=== PATIENT | female | born 1950 | race African-American/Black ===

== ENCOUNTER 2018-10-11 13:57 | Emergency (ER) | payer OTHER ==
[2018-10-11] MEDS ORDERED: HYDROCODONE/APAP 10/325 TAB ONE (15:14)
--- NOTE | 2018-10-11 16:01 | RAD REPORT ---
EXAM DESCRIPTION: RAD - Knee Right 3 View - 10/11/2018 3:04 pm CLINICAL HISTORY: Persistent right knee pain, history of breast cancer COMPARISON: September 2017 FINDINGS: No gross fracture deformity is seen. There is no dislocation or periosteal reaction. Media l compartment narrowing is present. Marginal spurs are present. Pattern is similar to the comparison. No joint effusion seen. No foreign body or other soft tissue abnormality. IMPRESSION: Right knee degenerative change as detailed. Pattern is similar to comparison with no acute component seen. Clinical concerns for internal derangement or occult bony injury could be further assessed with MR im aging.
--- NOTE | 2018-10-11 16:30 | EDPHYS ---
[facility] Name: Vicki [facility] Age: 68 yrs Sex: Female : 1950 Arrival Date: 10/11/2018 Time: 14:00 Bed 25 Private MD: ED Physician Gabino Mitchell HPI: 10/11 14:41 This 68 yrs old Black Female presents to ER via Ambulatory with complaints of Knee Pain.kdr 14:41 The patient presents with decreased range of motion, pain, that is chronic, tenderness. kdr The complaints affect the right knee. Context: The problem was sustained at home, resulted from an unknown cause, the patient can fully bear weight, the patient is able to ambulate, with mild difficulty, Problem is a result from a previous injury: No. Onset: The symptoms/episode began/occurred gradually, June. Modifying factors: The symptoms are alleviated by nothing. Has seen Dr. Cam in the last week and given Tramadol. She states that this medication has not helped up. Associated signs and symptoms: Pertinent positives: Pertinent negatives swelling, tingling, vomiting. Severity of symptoms: At their worst the symptoms were mild, in the emergency department the symptoms are unchanged. The patient has not experienced similar symptoms in the past. The patient has been recently seen by a physician: the patient's primary care provider. Denies any known injury. Historical: - Allergies: 14:03 No Known Allergies; ss - PMHx: 14:03 Arthritis; Cancer, Breast; Hypertension; ss - PSHx: 14:03 cataracts; ss - Immunization history:: Adult Immunizations unknown. - Social history:: Smoking status: Patient/guardian denies using tobacco. - Ebola Screening: : Patient denies exposure to infectious person Patient denies travel to an Ebola-affected area in the 21 days before illness onset. ROS: 14:41 Constitutional: Negative for fever, chills, and weight loss, Eyes: Negative for injury, kdr pain, redness, and discharge. 14:41 MS/extremity: Positive for decreased range of motion, pain, tenderness. Exam: 14:41 Constitutional: This is a well developed, well nourished patient who is awake, alert, kdr and in no acute distress. 14:41 Musculoskeletal/extremity: Extremities: grossly normal except: decreased ROM, pain. Vital Signs: 14:03 BP 152 / 71; Pulse 87; Resp 16; Temp 98.4(TE); Pulse Ox 96% on R/A; Weight 131.54 kg; ss Height 5 ft. 6 in. (167.64 cm); Pain 10/10; 16:40 BP 146 / 76; Pulse 84; Resp 15; Temp 98; Pulse Ox 97% on R/A; rv 14:03 Body Mass Index 46.81 (131.54 kg, 167.64 cm) MDM: 14:41 Data reviewed: vital signs, nurses notes. Counseling: I had a detailed discussion with kdr the patient and/or guardian regarding: the historical points, exam findings, and any diagnostic results supporting the discharge/admit diagnosis, radiology results, the need for outpatient follow up. 16:29 Patient medically screened. kdr 10/11 14:40 Order name: Knee Right 3 View XRAY; Complete Time: 16:27 kdr Administered Medications: 14:58 Drug: [place] 10 mg-325 mg 1 tabs Route: PO; aj 16:41 Follow up: Response: No adverse reaction; Marked relief of symptoms; Pain is decreased rv Disposition: 10/11/18 16:29 Discharged to Home. Impression: Pain in right knee, Degenerative Joint Disease - right knee. - Condition is Stable. - Discharge Instructions: Knee Pain, [id number], Joint Pain, Xftr-gv-[id number]. - Prescriptions for Tylenol- Codeine #3 300-30 mg Oral Tablet - take 2 tablet by ORAL route every 6 hours As needed; 30 tablet. - Medication Reconciliation Form, Thank You Letter, Prescription Opioid Use form. - Follow up: Private Physician; When: 2 - 3 days; Reason: If symptoms return, Further diagnostic work-up, Recheck today's complaints, Continuance of care, Re-evaluation by your physician. Follow up: Richmond Sahu MD; When: 2 - 3 days; Reason: If symptoms return, Further diagnostic work-up, Recheck today's complaints, Continuance of care, Re-evaluation by your physician. - Problem is an ongoing problem. - Symptoms have improved. Signatures: Dispatcher [employer] Lucy Ortiz RN RN aj Rittger, Kevin, MD MD kdr Smirch, Shelby, RN RN Dajuan, Jay, RN RN rv Corrections: (The following items were deleted from the chart) 16:42 16:29 10/11/2018 16:29 Discharged to Home. Impression: Pain in right knee; Degenerative rv Joint Disease - right knee. Condition is Stable. Forms are Medication Reconciliation Form, Thank You Letter, Antibiotic Education, Prescription Opioid Use. Follow up: Private Physician; When: 2 - 3 days; Reason: If symptoms return, Further diagnostic work-up, Recheck today's complaints, Continuance of care, Re-evaluation by your physician. Follow up: Richmond Sahu; When: 2 - 3 days; Reason: If symptoms return, Further diagnostic work-up, Recheck today's complaints, Continuance of care, Re-evaluation by your physician. Problem is an ongoing problem. Symptoms have improved. kdr
--- NOTE | 2018-10-11 16:30 | ER ---
Nurse's Notes [facility] Name: Vicki Mention Age: 68 yrs Sex: Female : 1950 Arrival Date: 10/11/2018 Time: 14:00 Bed 25 Private MD: Diagnosis: Pain in right knee;Degenerative Joint Disease - right knee Presentation: 10/11 14:02 Presenting complaint: Patient states: R knee pain x months. Patient states that the ss tramadol that Dr. Cam had prescribed her is not helping. Transition of care: patient was not received from another setting of care. Onset of symptoms is unknown. Risk Assessment: Do you want to hurt yourself or someone else? Patient reports no desire to harm self or others. Initial Sepsis Screen: Does the patient meet any 2 criteria? No. Patient's initial sepsis screen is negative. Does the patient have a suspected source of infection? No. Patient's initial sepsis screen is negative. Care prior to arrival: None. 14:02 Method Of Arrival: Ambulatory ss 14:02 Acuity: BONG 4 ss Historical: - Allergies: 14:03 No Known Allergies; ss - PMHx: 14:03 Arthritis; Cancer, Breast; Hypertension; ss - PSHx: 14:03 cataracts; ss - Immunization history:: Adult Immunizations unknown. - Social history:: Smoking status: Patient/guardian denies using tobacco. - Ebola Screening: : Patient denies exposure to infectious person Patient denies travel to an Ebola-affected area in the 21 days before illness onset. Screenin:59 Abuse screen: Denies threats or abuse. Denies injuries from another. Nutritional aj screening: No deficits noted. Tuberculosis screening: No symptoms or risk factors identified. Fall Risk None identified. Assessment: 14:59 General: Appears in no apparent distress. comfortable, Behavior is calm, cooperative, aj appropriate for age. Pain: Complains of pain in right knee. Neuro: Level of Consciousness is awake, alert, obeys commands, Oriented to person, place, time, situation. Respiratory: Airway is patent Respiratory effort is even, unlabored, Respiratory pattern is regular, symmetrical. Derm: Skin is intact, is healthy with good turgor, Skin is pink, warm \T\ dry. normal. Musculoskeletal: Reports pain in right knee. 16:00 Reassessment: Patient appears in no apparent distress at this time. Patient and/or rv family updated on plan of care and expected duration. Pain level reassessed. Patient is alert, oriented x 3, equal unlabored respirations, skin warm/dry/pink. Patient states feeling better. Vital Signs: 14:03 BP 152 / 71; Pulse 87; Resp 16; Temp 98.4(TE); Pulse Ox 96% on R/A; Weight 131.54 kg; Height 5 ft. 6 in. (167.64 cm); Pain 10/10; 16:40 BP 146 / 76; Pulse 84; Resp 15; Temp 98; Pulse Ox 97% on R/A; rv 14:03 Body Mass Index 46.81 (131.54 kg, 167.64 cm) ED Course: 14:00 Patient arrived in ED. as 14:02 Gabino Mitchell MD is Attending Physician. kdr 14:03 Triage completed. ss 14:03 Arm band placed on left wrist. 14:06 Robert Hernandez RN is Primary Nurse. aj 14:59 Patient has correct armband on for positive identification. aj 15:06 Knee Right 3 View XRAY In Process Unspecified. EDMS 15:33 Report received from ROBERT POWELL. rv 16:28 Richmond Sahu MD is Referral Physician. kdr 16:42 No provider procedures requiring assistance completed. Patient did not have IV access rv during this emergency room visit. Administered Medications: 14:58 Drug: [place] 10 mg-325 mg 1 tabs Route: PO; aj 16:41 Follow up: Response: No adverse reaction; Marked relief of symptoms; Pain is decreased rv Outcome: 16:29 Discharge ordered by . kdr 16:42 Discharged to home via wheelchair, with family. rv 16:42 Condition: improved 16:42 Discharge instructions given to patient, Instructed on discharge instructions, follow up and referral plans. medication usage, Demonstrated understanding of instructions, follow-up care, medications, Prescriptions given X 1. 16:42 Patient left the ED. rv Signatures: Dispatcher [employer] EDMS Robert Hernandez, Gabino Dunbar RN, MD MD [facility] Kelsey Anderson Shelby, RN RN Jay Graff RN RN rv
[2018-10-11 17:26] VITALS: BP 146/76; TEMP 98; O2SAT 97
== END 2018-10-11 16:42 | disposition home or self-care (01) ==
LOC: ER 13:57
DX: M17.11 Unilateral primary osteoarthritis, right knee (principal); I10 Essential (primary) hypertension; Z85.3 Personal history of malignant neoplasm of breast
CPT/HCPCS: 99283

== ENCOUNTER 2019-08-16 13:31 | Emergency (ER) | payer OTHER ==
--- NOTE | 2019-08-16 15:14 | RAD REPORT ---
EXAM DESCRIPTION: RAD - Knee Right 3 View - 08/16/2019 2:49 pm CLINICAL HISTORY: PAIN COMPARISON: Knee Right 3 View dated 10/11/2018; Knee Right 2 View dated 10/07/2017 FINDINGS: No fracture, dislocation or periosteal reaction.No joint effusion seen. Medial compartment narrowing is seen with marginal spurring. Pattern is not substantially different from the comparison . No foreign body or other soft tissue abnormality. IMPRESSION: Significant medial compartment degenerative change with no acute finding. Bone and joint findings are similar to September 2018. Clinical concerns for internal derangement or occult bony injury could be further assessed with MR im aging.
--- OUTSIDE RECORDS SUMMARY | 2019-08-16 15:29 | XMS REPORT ---
:1950 Author Organization [facility] t Address [address] [place] [address] Care Team Providers Name Role Phone Radiology Attending Clinician Unavailable Problems This patient has no known problems. Allergies, Adverse Reactions, Alerts This patient has no known allergies or adverse reactions. Medications This patient has no known medications. Procedures This patient has no known procedures. Encounters Start End Encounter Admission Attending Care Care Encounter Source Date/Time Date/Time Type Type Clinicians Facility Department ID 2019-08-10 2019-08-10 [facility] Radiology [facility] [id number] 06:45:00 23:59:00 Encounter [facility] [id number] [facility] [id number] 2019-05-16 2019-05-16 [facility] Radiology UNIVERSIT [id number] 14:59:00 23:59:00 Encounter [facility] [id number] [facility] [id number] 2019-05-16 2019-05-16 [facility] Radiology UNIVERSIT [id number] 14:58:00 14:58:00 Encounter [facility] [id number] [facility] [id number] Results This patient has no known results.
--- OUTSIDE RECORDS SUMMARY | 2019-08-16 15:30 | XMS REPORT | Summary of Care ---
:1950 Author Organization [facility] Address [address] [place] [id number] Care Team Providers Name Role Phone Jovita Hassan Primary Care Provider Reason for Visit Radiology Services (Routine) Status Reason Specialty Diagnoses / Referred By Referred To Procedures Contact Contact Closed Diagnostic Diagnoses Abnormal mammogram Keisha Cam Radiology Procedures BI UPRIGHT STEREOTACTIC CORE BREAST BIOPSY RIGHT BI STEREOTACTIC CORE BREAST BIOPSY LEFT L [address] [place] [address] Encounter Details Date Type Department Care Team Description 08/10/[address] [facility] Breast Radiology Arrived Imaging [address] [place] [address] [place] [address] [place] [address] [place] [address] Allergies No Known Allergiesdocumented as of this encounter (statuses as of 08/11/2019) Medications Medication Sig Dispensed Refills Start Date End Date Status ASPIRIN 81 MG ORAL TAB None Entered 0 Active ESSENTIAL WOMAN 50+ ORAL 800 units of 0 Active vitamin D and 450mg calcium in tab, takes once a day traMADOL (ULTRAM) 50 mg Take 1 Tab by 120 Tab 5 06/10/2010 Active tabletIndications: mouth every 6 Generalized (six) hours as osteoarthrosis, needed for unspecified site Pain. levalbuterol (XOPENEX HFA) Inhale 1-2 1 Inhaler 11 10/01/2010 Active 45 mcg/Actuation Puffs every 4 inhalerIndications: Asthma (four) hours as needed for Wheezing. cloniDINE (CATAPRES) 0.2 Take 1 Tab by 180 Tab 3 10/01/2010 Active mg tabletIndications: mouth 2 (two) Unspecified essential times daily. hypertension esomeprazole (NEXIUM) 40 Take 1 Cap by 90 Cap 3 10/01/2010 Active mg capsuleIndications: mouth daily. Esophageal reflux diltiazem (CARDIZEM CD) TAKE 1 CAPSULE 90 Cap 1 04/13/2011 Active 240 mg 24 hr capsule EVERY DAY hydrocodone-acetaminophen Take 1 Tab by 60 Tab 1 06/16/2011 Active (NORCO) 5-325 mg tablet mouth every 6 (six) hours as needed for Pain. hydrochlorothiazide Take 12.5 mg 0 Active (ESIDRIX) 12.5 mg capsule by mouth daily. warfarin (COUMADIN) 7.5 mg Take 7.5 mg by 0 Active tablet mouth every Wednesday, and Wednesday in the evening. warfarin (COUMADIN) 5 mg Take 5 mg by 0 Active tablet mouth every , , Sat and Sun in the evening. vitamin B-12 (VITAMIN Take 1 Tab by 90 Tab 3 06/23/2011 Active B-12) 1,000 mcg tablet mouth daily. documented as of this encounter (statuses as of 08/11/2019) Active Problems Problem Noted Date Asthma 10/01/2010 HLD (hyperlipidemia) 10/01/2010 Overview: ICD10 Diagnosis Term It Administrative Assistant Utility CKD (chronic kidney disease) stage 3, GFR 30-59 ml/min 06/10/2010 Anemia 06/10/2010 Overview: ICD10 Diagnosis Term It Administrative Assistant Utility Pain in joint, lower leg 03/11/2009 Lumbago 03/11/2009 Generalized osteoarthrosis, unspecified site 9 Morbid obesity 07/31/2008 Malignant neoplasm of lower-inner quadrant of female b reast 05/24/2006 Essential hypertension 01/11/2006 Overview: ICD10 Diagnosis Term It Administrative Assistant Utility Esophageal reflux 01/11/2006 Obstructive sleep apnea 01/11/2006 Overview: ICD10 Diagnosis Term It Administrative Assistant Utility 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 documented as of this encounter (statuses as of 08/11/2019) Resolved Problems Problem Noted Date Resolved Date Obesity 07/31/2008 07/31/2008 Overview: ICD10 Diagnosis Term It Administrative Assistant Utility Asthma 01/11/2006 10/01/2010 Overview: ICD10 Diagnosis Term It Administrative Assistant Utility Other dyspnea and respiratory abnormality 01/11/2006 01/11/2006 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 6 documented as of this encounter (statuses as of 08/11/2019) Immunizations Name Administration Dates Next Due H1n1 Vaccine 04/17/2009 Influenza Virus Vaccine 01/23/2010, 01/14/2009, 01/11/2008, 01/11/2006 Pneumococcal 7 Conjugate, PCV7 08/24/2005 (Prevnar7) Zoster(Zostavax)(Shingles) 01/23/2010 documented as of this encounter Social History Tobacco Use Types Packs/Day Years Used Date Never Smoker Smokeless Tobacco: Never Used Alcohol Use Drinks/Week oz/Week Comments No Sex Assigned at Date Recorded Not on file Job Start Date Occupation Industry Not on file Not on file Not on file Travel History Travel Start Travel End No recent travel history available. COVID-19 Exposure Response Date Recorded In the last month, have you been in contact with No / Unsure 08/10/2019 6:44 AM CDT someone who was confirmed or suspected to have Coronavirus / COVID-19? documented as of this encounter Last Filed Vital Signs Not on filedocumented in this encounter Plan of Treatment Name Type Priority Associated Diagnoses Date/Ti ut SURGICAL PATHOLOGY EXAM LAB STAT 07/21 9:23 AM CDT Name Type Priority Associated Diagnoses Order S [facility] SURGICAL PATHOLOGY EXAM LAB Routine ONCE for 1 Occurrences starting 2019, 1 completed Health Maintenance Due Date Last Done Comments HEPATITIS C (HCV) SCREEN 1950 DTaP,Tdap,and Td Vaccines (1 - 1959 Tdap) COLONOSCOPY 1998 Breast Cancer Screening 09/11/2008 09/12/2007, 08/12/2005 (MAMMOGRAM) Zoster Recombinant Vaccine 03/20/2010 01/23/2010 (SHINGRIX) (2 of 3) Medicare Wellness Visit 2013 PNEUMOCOCCAL VACCINES 65+ (1 of 2 2013 - PCV13) Osteoporosis Screening 10/13/2014 10/13/2004 INFLUENZA VACCINE (Season Ended) 2019 01/23/2010, , 01/11/2008, Additional history exists documented as of this encounter Procedures Procedure Name Priority Date/Time Associated Comments Diagnosis BI UPRIGHT Routine 08/10/2019 10:07 Abnormal mammogram Resul ts for this STEREOTACTIC CORE AM CDT procedure are in BREAST BIOPSY RIGHT the resu lts section. documented in this encounter Results BI UPRIGHT STEREOTACTIC CORE BREAST BIOPSY RIGHT (08/10/2019 10:07 AM CDT) Specimen Narrative Performed At This result has an attachment that is no t available. Examination: PACS BI UPRIGHT STEREOTACTIC CORE BREAST BIOPSY RIGHT The procedure was explained to the patient including b enefits and alternatives. The risks, including but not limited t o infection and bleeding, were reviewed and the patient agreed to unde rgo the procedure, signing the consent form. Timeout was performed. History: Patient is a 69 year old year old female and is seen f or: Abnormal mmg. Comparisons: 03/31/2019 BI DIAGNOSTIC MAMMOGRAM RIGHT, 03/09/2019 MAMMOGRAM SCREENING EXAM, 02/14/2018 MAMMOGRAM SCREENI NG EXAM, 12/31/2016 MAMMOGRAM SCREENING EXAM, 09/12/2007 DIGITAL MAMMOGRAM , SCREENING, 09/10/2006 MAMMARY SCREENING EXAM, 04/20/2006 MAMMOGRA M, BILATERAL, 08/12/2005 DIGITAL MAMMOGRAM, UNILATERAL, and 07/29/19 06 MAMMARY SCREENING EXAM Outside exam dated 03/31/19 with the following findings : Mildly pleomorphic calcification cluster in the deep m edial right breast is again identified. 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 The patient now presents for stereotactic biopsy. CURRENT EXAM: The patient was upright position for the biopsy. The area of interest was localized and targeted via medial approach utilizing d igital spot mammography with computer calculation. After antiseptic preparation the skin puncture site wa s infiltrated with lidocaine. Deep local anesthesia about the biopsy si te was administered using lidocaine with epinephrine. A skin incision wa s made. A 9 gauge Eviva vacuum-assisted automated core biopsy needle was inserted to the computer determined depth, and stereotactic images chad wed satisfactory relationship of the needle position to the target at 4 :00, posterior depth, 16 cm from the nipple. Tissue cores were obta ined. Digital specimen radiography showed calcifications within some of the cores. A TOP HAT shaped tissue marker clip was deployed through the needle, and the needle was withdrawn. On the post biopsy mammogram the top hat clip is as fo llows: On the RCC view the top hat clip is approximately 5 cm medial to the sampled calcifications. On the RMLO view the top hat clip is approximately 0.9 cm inferior to the sampled calcifications. On the RML view the top hat clip is approximately 21 m m superior to the sampled calcifications. The patient's breasts are extremely pendulous. Approxi mately 4 mm of residual calcifications are noted in the sampled area and foci of air are seen at the biopsy site (before the biopsy the calcifi cations measured 9 mm in greatest dimension). A significant amount of c alcifications are seen in the core samples. Recommendation: Pending pathology results - Right tissue sampling of t he right breast calcifications at 4:00, posterior depth, 16 cm from th e nipple. BI-RADS 4. Top hat-shaped clip, as above. Performing Organization Address City/State/Zipcode Phone Number PACS documented in this encounter Visit Diagnoses Diagnosis Abnormal mammogram Abnormal mammogram, unspecified documented in this encounter Insurance Payer Benefit Plan / Subscriber ID Effective Phone Address T ype Group Dates MEDICARE MEDICARE PART xxxxxxxxxxx 2003-Pres [phone] Medicare A & B ent [id number] [place] [id number] [employer] xxxxxxxxx 2006-Pres [address] [place] [id number] [place] [address] (Work) [id number] documented as of this encounter
[2019-08-16] MEDS ORDERED: HYDROCODONE/APAP 5/325 MG TAB ONE (15:46)
[2019-08-16] MEDS ORDERED: predniSONE 20 MG TAB ONE (15:47)
[2019-08-16 16:30] VITALS: BP 148/69; TEMP 98.4; O2SAT 100
--- NOTE | 2019-08-21 14:25 | ER ---
Nurse's Notes [facility] [place] Name: Vicki Mention Age: 69 yrs Sex: Female : 1950 Arrival Date: 08/16/2019 Time: 13:41 Bed 11 Private MD: Diagnosis: Pain in right knee Presentation: 08/15 13:59 Chief complaint: Patient states: right knee pain for years but has gotten worse over dm5 the last couple of months. Pain rated at 9/10 at this time. Coronavirus screen: Proceed with normal triage. Patient denies a cough. Patient denies shortness of breath or difficulty breathing. Patient denies measured and/or subjective temperature greater than 100.4F prior to today's visit. Patient denies travel on a cruise ship or to a country the [facility] currently lists as an affected area. Patient denies contact with known and/or suspected case of COVID-19. Ebola Screen: Patient negative for fever greater than or equal to 101.5 degrees Fahrenheit, and additional compatible Ebola Virus Disease symptoms Patient denies exposure to infectious person. Patient denies travel to an Ebola-affected area in the 21 days before illness onset. No symptoms or risks identified at this time. Initial Sepsis Screen: Does the patient meet any 2 criteria? No. Patient's initial sepsis screen is negative. Does the patient have a suspected source of infection? No. Patient's initial sepsis screen is negative. Risk Assessment: Do you want to hurt yourself or someone else? Patient reports no desire to harm self or others. Onset of symptoms was May 2019. 13:59 Method Of Arrival: Other dm5 13:59 Acuity: BONG 4 dm5 Historical: - Allergies: 14:01 No Known Allergies; dm5 - Immunization history:: Adult Immunizations up to date. - Social history:: Smoking status: Patient denies any tobacco usage or history of. Screenin:30 Abuse screen: Denies threats or abuse. Denies injuries from another. Nutritional hb screening: No deficits noted. Tuberculosis screening: No symptoms or risk factors identified. Fall Risk None identified. Assessment: 15:30 General: Appears in no apparent distress. Behavior is calm, cooperative. Pain: Pain hb currently is 8 out of 10 on a pain scale. Neuro: Level of Consciousness is awake, alert, obeys commands. Cardiovascular: Patient's skin is warm and dry. Respiratory: Respiratory effort is even, unlabored. GI: No signs and/or symptoms were reported involving the gastrointestinal system. : No signs and/or symptoms were reported regarding the genitourinary system. EENT: No signs and/or symptoms were reported regarding the EENT system. Derm: Skin is pink, warm \T\ dry. Musculoskeletal: Reports right knee pain, chronic. Vital Signs: 13:59 BP 148 / 69; Pulse 74; Resp 18; Temp 98.4; Pulse Ox 100% on R/A; Weight 108.86 kg; dm5 Height 5 ft. 6 in. (167.64 cm); Pain 9/10; 13:59 Body Mass Index 38.74 (108.86 kg, 167.64 cm) 5 ED Course: 13:41 Patient arrived in ED. fj1 14:01 Triage completed. [facility] 15:29 Elsa Mccormack FNP-C is [facility]. snw 15:29 Gabino Mitchell MD is Attending Physician. snw 15:30 Patient has correct armband on for positive identification. hb 15:30 Arm band placed on. hb 15:41 Joy Ferro, RN is Primary Nurse. hb 15:48 No provider procedures requiring assistance completed. Patient did not have IV access hb during this emergency room visit. Administered Medications: 15:41 Drug: Orient 5 mg-325 mg 1 tabs Route: PO; hb 15:46 Follow up: Response: Medication administered at discharge. hb 15:41 Drug: predniSONE 40 mg Route: PO; hb 15:47 Follow up: Response: Medication administered at discharge. hb Outcome: 15:38 Discharge ordered by . snw 15:48 Discharged to home ambulatory. hb 15:48 Condition: stable 15:48 Discharge instructions given to patient, Instructed on discharge instructions, follow up and referral plans. medication usage, Demonstrated understanding of instructions, follow-up care, medications, Prescriptions given X 1. 15:49 Patient left the ED. hb Signatures: Joanie Bernard, RN RN 5 Elsa Mccormack FNP-C FNP-Csnw Joy Ferro RN RN Mickey Chatman [facility]
--- NOTE | 2019-08-21 14:25 | EDPHYS ---
[facility] Age: 69 yrs Sex: Female : 1950 Arrival Date: 08/16/2019 Time: 13:41 Bed 11 Private MD: ED Physician Gabino Mitchell HPI: 08/15 15:36 This 69 yrs old Black Female presents to ER via Other with complaints of Knee Pain. snw 15:36 Onset: The symptoms/episode began/occurred gradually, 6 month(s) ago, and became worse snw 1 week(s) ago. The patient has experienced similar episodes in the past, chronically, but today's symptoms are worse. The patient has not recently seen a physician, pt has not been able to see PCP to , Recent biopsy of breast, negative. Historical: - Allergies: 14:01 No Known Allergies; dm5 - Immunization history:: Adult Immunizations up to date. - Social history:: Smoking status: Patient denies any tobacco usage or history of. ROS: 15:35 Eyes: Negative for injury, pain, redness, and discharge, ENT: Negative for injury, snw pain, and discharge, Neck: Negative for injury, pain, and swelling, Cardiovascular: Negative for chest pain, palpitations, and edema, Respiratory: Negative for shortness of breath, cough, wheezing, and pleuritic chest pain, Abdomen/GI: Negative for abdominal pain, nausea, vomiting, diarrhea, and constipation, Back: Negative for injury and pain, : Negative for injury, bleeding, discharge, and swelling, Skin: Negative for injury, rash, and discoloration, Neuro: Negative for headache, weakness, numbness, tingling, and seizure. 15:35 Constitutional: Positive for right knee pain keeping pt awake at night. 15:35 MS/extremity: Positive for pain, of the right knee. Exam: 15:34 Constitutional: This is a well developed, well nourished patient who is awake, alert, snw and in no acute distress. Head/Face: Normocephalic, atraumatic. Eyes: Pupils equal round and reactive to light, extra-ocular motions intact. Lids and lashes normal. Conjunctiva and sclera are non-icteric and not injected. Cornea within normal limits. Periorbital areas with no swelling, redness, or edema. ENT: Nares patent. No nasal discharge, no septal abnormalities noted. Tympanic membranes are normal and external auditory canals are clear. Oropharynx with no redness, swelling, or masses, exudates, or evidence of obstruction, uvula midline. Mucous membranes moist. Neck: Trachea midline, no thyromegaly or masses palpated, and no cervical lymphadenopathy. Supple, full range of motion without nuchal rigidity, or vertebral point tenderness. No Meningismus. Chest/axilla: Normal chest wall appearance and motion. Nontender with no deformity. No lesions are appreciated. 15:34 Respiratory: Lungs have equal breath sounds bilaterally, clear to auscultation and percussion. No rales, rhonchi or wheezes noted. No increased work of breathing, no retractions or nasal flaring. Abdomen/GI: Soft, non-tender, with normal bowel sounds. No distension or tympany. No guarding or rebound. No evidence of tenderness throughout. Back: No spinal tenderness. No costovertebral tenderness. Full range of motion. Skin: Warm, dry with normal turgor. Normal color with no rashes, no lesions, and no evidence of cellulitis. Neuro: Awake and alert, GCS 15, oriented to person, place, time, and situation. Cranial nerves II-XII grossly intact. Motor strength 5/5 in all extremities. Sensory grossly intact. Cerebellar exam normal. Normal gait. Psych: Awake, alert, with orientation to person, place and time. Behavior, mood, and affect are within normal limits. 15:34 Cardiovascular: Rate: normal, Rhythm: regular, Heart sounds: murmur, Edema: ankle edema, that is mild. 15:34 Musculoskeletal/extremity: Extremities: grossly normal except: noted in the right knee: tenderness, ROM: intact in all extremities, uses walker, Circulation is intact in all extremities. Sensation intact. Vital Signs: 13:59 BP 148 / 69; Pulse 74; Resp 18; Temp 98.4; Pulse Ox 100% on R/A; Weight 108.86 kg; dm5 Height 5 ft. 6 in. (167.64 cm); Pain 9/10; 13:59 Body Mass Index 38.74 (108.86 kg, 167.64 cm) dm5 MDM: 15:29 Patient medically screened. snw 15:39 Data reviewed: vital signs, nurses notes. Data interpreted: Pulse oximetry: on room air snw is 100 %. Counseling: I had a detailed discussion with the patient and/or guardian regarding: the historical points, exam findings, and any diagnostic results supporting the discharge/admit diagnosis, radiology results, the need for outpatient follow up, to return to the emergency department if symptoms worsen or persist or if there are any questions or concerns that arise at home. Special discussion: I have referred the patient to see his PCP for further evaluation of high blood pressure. Based on the history and exam findings, there is no indication for further emergent testing or inpatient evaluation. I discussed with the patient/guardian the need to see the orthopedic surgeon for further evaluation of the symptoms. I discussed with the patient/guardian the need to see the primary care provider for further evaluation of the symptoms. 08/15 14:02 Order name: Knee Right 3 View XRAY dm5 Administered Medications: 15:41 Drug: Paton 5 mg-325 mg 1 tabs Route: PO; hb 15:46 Follow up: Response: Medication administered at discharge. hb 15:41 Drug: predniSONE 40 mg Route: PO; hb 15:47 Follow up: Response: Medication administered at discharge. hb Disposition: 16:33 Co-signature as Attending Physician, Gabino Mitchell MD I agree with the assessment and kdr plan of care. Disposition: 08/16/19 15:38 Discharged to Home. Impression: Pain in right knee. - Condition is Stable. - Discharge Instructions: Joint Pain, Arthritis, Knee Pain, Cryotherapy, [id number], Heat Therapy. - Prescriptions for Prednisone 20 mg Oral Tablet - take 2 tablet by ORAL route once daily for 5 days; 10 tablet. - Medication Reconciliation Form, Thank You Letter, Antibiotic Education, Prescription Opioid Use form. - Follow up: Emergency Department; When: As needed; Reason: Worsening of condition. Follow up: Private Physician; When: 5 - 6 days; Reason: Recheck today's complaints, Continuance of care. Signatures: Dispatcher [employer] Joanie Leger, RN RN dm5 Gabino Mitchell MD MD kdr Therrien, Shelly, J2EE DEVELOPER-C J2EE DEVELOPER-Csnw Joy Ferro RN RN hb Corrections: (The following items were deleted from the chart) 15:49 15:38 08/16/2019 15:38 Discharged to Home. Impression: Pain in right knee. Condition is hb Stable. Forms are Medication Reconciliation Form, Thank You Letter, Antibiotic Education, Prescription Opioid Use. Follow up: Emergency Department; When: As needed; Reason: Worsening of condition. Follow up: Private Physician; When: 5 - 6 days; Reason: Recheck today's complaints, Continuance of care. snw
== END 2019-08-16 15:49 | disposition home or self-care (01) ==
LOC: ER 13:31
DX: M25.561 Pain in right knee (principal)
CPT/HCPCS: 99283; J7512

== ENCOUNTER 2020-04-18 14:16 | Emergency (ER) | payer OTHER ==
--- OUTSIDE RECORDS SUMMARY | 2020-04-18 14:26 | XMS REPORT | Summary of Care ---
:1950 [address] [facility] Address [address] [place] [id number] Care Team Providers Name Role Phone Jovita Hassan Primary Care Provider Reason for Visit Reason Comments New Patient (Routine) Status Reason Specialty Diagnoses / Procedures Referred By C ontact Referred To Contact Closed Cardiology Diagnoses Unspecified diastolic (congestive) heart failure Brenton Fernandez, Procedures CONSULT/REFERRAL CARDIOLOGY [address] [place] [address] Phone: Encounter Details Date Type Department Care Team Description 03/19/2020 Office Visit [facility] Tamy George ERRONEOUS Cardiology- Mikhail Baeza MD ENCOUNTER--DISREGARD [address], [address] [place] [id number] Allergies No Known Allergiesdocumented as of this encounter (statuses as of 03/20/2020) Medications Medication Sig Dispensed Refills Start Date [...] Active B-12) 1,000 mcg tablet mouth daily. furosemide 40 mg tablet TK 1 T PO QD 0 09/11/2019 Active IN THE MORNING PRF LEG SWELLING omeprazole 20 mg capsule TK 1 C PO QD 0 09/11/2019 Active FOR REFLUX documented as of this encounter (statuses as of 03/20/2020) Active Problems Problem Noted Date Asthma 10/01/2010 HLD (hyperlipidemia) 10/01/2010 Overview: ICD10 Diagnosis Term Strategic Advisor Utility CKD (chronic kidney disease) stage 3, GFR 30-59 ml/min 06/10/2010 Anemia 06/10/2010 Overview: ICD10 Diagnosis Term Strategic Advisor Utility Pain in joint, lower leg 03/11/2009 Lumbago 03/11/2009 Generalized osteoarthrosis, unspecified site 9 Morbid obesity 07/31/2008 Malignant neoplasm of lower-inner quadrant of female b reast 05/24/2006 Essential hypertension 01/11/2006 Overview: ICD10 Diagnosis Term Strategic Advisor Utility Esophageal reflux 01/11/2006 Obstructive sleep apnea 01/11/2006 Overview: ICD10 Diagnosis Term Strategic Advisor Utility 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 documented as of this encounter (statuses as of 03/20/2020) Resolved Problems Problem Noted Date Resolved Date Obesity 07/31/2008 07/31/2008 Overview: ICD10 Diagnosis Term Strategic Advisor Utility Asthma 01/11/2006 10/01/2010 Overview: ICD10 Diagnosis Term Strategic Advisor Utility Other dyspnea and respiratory abnormality 01/11/2006 01/11/2006 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 6 documented as of this encounter (statuses as of 03/20/2020) Immunizations Name Administration Dates Next Due H1n1 Vaccine 04/17/2009 Influenza Virus Vaccine 01/23/2010, 01/14/2009, 01/11/2008, 01/11/2006 Pneumococcal 7 Conjugate, PCV7 08/24/2005 (Prevnar7) Zoster(Zostavax)(Shingles) 01/23/2010 documented as of this encounter Social History Tobacco Use Types Packs/Day Years Used Date Never Smoker Smokeless Tobacco: Never Used Alcohol Use Drinks/Week oz/Week Comments No Sex Assigned at Date Recorded Not on file COVID-19 Exposure Response Date Recorded In the last month, have you been in contact with No / Unsure 03/19/2020 9:02 AM COST RECOVERY TECHNICIAN someone who was confirmed or suspected to have Coronavirus / COVID-19? documented as of this encounter Last Filed Vital Signs Not on filedocumented in this encounter Progress Notes Tamy George MD - 03/19/2020 1:00 PM CSTA user error has taken place: encounter opened in error, closed for administrative reasons. RECOVERY TECHNICIAN documented in this encounter Plan of Treatment Health Maintenance Due Date Last Done Comments HEPATITIS C (HCV) SCREEN 1950 DTaP,Tdap,and Td Vaccines ( - 1967 Tdap) COLON CANCER SCREENING ANNUAL 1998 FIT/FOBT COLON CANCER SCREENING FIT DNA 1998 EVERY 3 YEARS COLON CANCER SCREENING 1998 SIGMOIDOSCOPY EVERY 5 YEARS COLONOSCOPY 1998 Colorectal Cancer Screening 1998 Breast Cancer Screening 09/11/2008 09/12/2007, 08/12/2005 (MAMMOGRAM) Zoster Recombinant Vaccine 03/20/2010 01/23/2010 (SHINGRIX) (2 of 3) Medicare Wellness Visit 2013 PNEUMOCOCCAL VACCINES 65+ (1 of 1 2013 - PPSV23) Osteoporosis Screening 10/13/2014 10/13/2004 INFLUENZA VACCINE (#1) 2019 01/23/2010, 01/14/2009, 01/11/2008, Additional history exists Depression Screening 03/19/2021 03/19/2020 documented as of this encounter Results Not on filedocumented in this encounter Visit Diagnoses Diagnosis ERRONEOUS ENCOUNTER--DISREGARD - Primary documented in this encounter Insurance Payer Benefit Plan / Subscriber ID Effective Phone Address T e Group Dates [facility] [id number] 2019-Pres Medica re Adv HEALTHCARE - HEALTHCARE ent HMO MANAGED DUAL COMPLETE MEDICARE O [employer] [id number] 2006-Pres [address] [place] [id number] [place] [address] (Work) [id number] documented as of this encounter
--- OUTSIDE RECORDS SUMMARY | 2020-04-18 14:26 | XMS REPORT | Summary of Care ---
:1950 Author Organization [facility] - [facility] Address [address] [place] [address] Care Team Providers Name Role Phone Catherine Holly MD Primary Care Provider FARHEEN Weaver Primary Care Provider Tiffany Holly MD Primary Care Provider Barry Mccray MD Primary Care Provider Unavailable Alessandro Orourke MD Primary Care Provider Unavailable Alessandro Orourke MD Primary Care Provider Unavailable FARHEEN Weaver Primary Care Provider MD Frank Primary Care Provider Sonya Primary Care Provider Encounter Details Date Type Department Care Team Description Orders Only [facility] Doctor Unassigned, No [address] [facility] Name [place] [id number] [place], [place] [id number] Allergies No Known Allergiesdocumented as of this encounter (statuses as of 03/11/2020) Medications No known medicationsdocumented as of this encounter (statuses as of 03/11/2020) Active Problems Problem Noted Date Asthma 10/01/2010 HLD (hyperlipidemia) 10/01/2010 Overview: ICD10 Diagnosis Term Supervisor Facepiece Line Utility CKD (chronic kidney disease) stage 3, GFR 30-59 ml/min 06/10/2010 Anemia 06/10/2010 Overview: ICD10 Diagnosis Term Supervisor Facepiece Line Utility Pain in joint, lower leg 03/11/2009 Lumbago 03/11/2009 Generalized osteoarthrosis, unspecified site 9 Morbid obesity 07/31/2008 Malignant neoplasm of lower-inner quadrant of female b reast 05/24/2006 Essential hypertension 01/11/2006 Overview: ICD10 Diagnosis Term Supervisor Facepiece Line Utility Esophageal reflux 01/11/2006 Obstructive sleep apnea 01/11/2006 Overview: ICD10 Diagnosis Term Supervisor Facepiece Line Utility 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 documented as of this encounter (statuses as of 03/11/2020) Resolved Problems Problem Noted Date Resolved Date Obesity 07/31/2008 07/31/2008 Overview: ICD10 Diagnosis Term Supervisor Facepiece Line Utility Asthma 01/11/2006 10/01/2010 Overview: ICD10 Diagnosis Term Supervisor Facepiece Line Utility Other dyspnea and respiratory abnormality 01/11/2006 01/11/2006 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 documented as of this encounter Last Filed Vital Signs Not on filedocumented in this encounter Plan of Treatment Date Type Specialty Care Team Description 03/19/2020 Office Visit Cardiology Tamy George MD [address] [place] [address] [place] [address] [phone] Health Maintenance Due Date Last Done Comments HEPATITIS C (HCV) SCREEN 1950 Depression Screening 1960 DTaP,Tdap,and Td Vaccines (1 - 1967 Tdap) COLON CANCER SCREENING ANNUAL [...] 2019 01/23/2010, 01/14/2009, 01/11/2008, Additional history exists documented as of this encounter Procedures Procedure Name Priority Date/Time Associated Diagnosis Comme nts REFERRAL- Routine ACCOUNTANT REQUEST/RESPONSE documented in this encounter Results Not on filedocumented in this encounter
--- OUTSIDE RECORDS SUMMARY | 2020-04-18 14:26 | XMS REPORT | Continuity of Care Document ---
:1950 Author Organization [facility] t Address [address] [place] [address] Care Team Providers Name Role Phone Luisa Horne Attending Clinician Problems This patient has no known problems. Allergies, Adverse Reactions, Alerts This patient has no known allergies or adverse reactions. Medications This patient has no known medications. Procedures This patient has no known procedures. Encounters Start End Encounter Admission Attending Care Care Encounter Source Date/Time Date/Time Type Type Clinicians Facility Department ID 2020-04-16 2020-04-16 Telephone MEGHNA Gomez [id number] 00:00:00 00:00:00 [facility] [employer] [id number] Surgical [id number] Specialti [id number] [address] [place] 2020-01-11 2020-01-11 Office MEGHNA Gomez [id number] 40 13:58:02 15:13:34 Visit [facility] [id number] Surgical [id number] Specialti [phone] [address] [place] Results This patient has no known results.
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
--- OUTSIDE RECORDS SUMMARY | 2020-04-18 14:27 | XMS REPORT | Summary of Care ---
:1950 Author Organization [facility] - [facility] Address [address] [place] [address] Care Team Providers Name Role Phone Jovita Hassan Primary Care Provider Reason for Visit Reason Comments New Patient (Routine) Status Reason Specialty Diagnoses / Procedures Referred By C ontact Referred To Contact Closed Cardiology Diagnoses Unspecified diastolic (congestive) heart failure Brenton Fernandez, Procedures CONSULT/REFERRAL CARDIOLOGY [address] [place] [address] Phone: Encounter Details Date Type Department Care Team Description 03/19/2020 Office Visit [facility] Tamy George ERRONEOUS Cardiology- Mikhail Baeza MD ENCOUNTER--DISREGARD [address] ([address] Dx) Drive, [address] [place] [phone] Allergies No Known Allergiesdocumented [...] HLD (hyperlipidemia) 10/01/2010 Overview: ICD10 Diagnosis Term Buffet Runner Utility CKD (chronic kidney disease) stage 3, GFR 30-59 ml/min 06/10/2010 Anemia 06/10/2010 Overview: ICD10 Diagnosis Term Buffet Runner Utility Pain in joint, lower leg 03/11/2009 Lumbago 03/11/2009 Generalized osteoarthrosis, unspecified site 9 Morbid obesity 07/31/2008 Malignant neoplasm of lower-inner quadrant of female b reast 05/24/2006 Essential hypertension 01/11/2006 Overview: ICD10 Diagnosis Term Buffet Runner Utility Esophageal reflux 01/11/2006 Obstructive sleep apnea 01/11/2006 Overview: ICD10 Diagnosis Term Buffet Runner Utility 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 documented as of this encounter Last Filed Vital Signs Not on filedocumented in this encounter Progress Notes Tamy George MD - 03/19/2020 1:00 PM CSTA user error has taken place: encounter opened in error, closed for administrative reasons. RANCH HAND documented in this encounter Plan of Treatment [...] Effective Phone Address T e Group Dates [facility] [id number] 2019-Pres Medica re Adv HEALTHCARE - HEALTHCARE ent HMO MANAGED DUAL COMPLETE MEDICARE O [employer] [id number] 2006-Pres [address] [place] [id number] [place] [address] (Work) [id number] documented as of this encounter
--- OUTSIDE RECORDS SUMMARY | 2020-04-18 14:27 | XMS REPORT | Summary of Care ---
:1950 Author Organization [facility] - [facility] Address [address] [place] [address] Care Team Providers Name Role Phone Jovita Hassan Primary Care Provider Reason for Visit Reason Comments Appointment injection Encounter Details Date Type Department Care Team Description 04/16/2020 Telephone [facility] Harry Gomez A ppointment (injection) Surgery- [place] PAC [address], [address] [place] [address] [place], [place] [phone] Allergies No Known Allergiesdocumented as of this encounter (statuses as of 04/16/2020) Medications Medication Sig Dispensed Refills Start Date [...] as of this encounter (statuses as of 04/16/2020) Active Problems Problem Noted Date Asthma 10/01/2010 HLD (hyperlipidemia) 10/01/2010 Overview: ICD10 Diagnosis Term Patient Accounts Specialist Utility CKD (chronic kidney disease) stage 3, GFR 30-59 ml/min 06/10/2010 Anemia 06/10/2010 Overview: ICD10 Diagnosis Term Patient Accounts Specialist Utility Pain in joint, lower leg 03/11/2009 Lumbago 03/11/2009 Generalized osteoarthrosis, unspecified site 9 Morbid obesity 07/31/2008 Malignant neoplasm of lower-inner quadrant of female b reast 05/24/2006 Essential hypertension 01/11/2006 Overview: ICD10 Diagnosis Term Patient Accounts Specialist Utility Esophageal reflux 01/11/2006 Obstructive sleep apnea 01/11/2006 Overview: ICD10 Diagnosis Term Patient Accounts Specialist Utility 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 documented as of this encounter (statuses as of 04/16/2020) Resolved Problems Problem Noted Date Resolved Date Obesity 07/31/2008 07/31/2008 Overview: ICD10 Diagnosis Term Patient Accounts Specialist Utility Asthma 01/11/2006 10/01/2010 Overview: ICD10 Diagnosis Term Patient Accounts Specialist Utility Other dyspnea and respiratory abnormality 01/11/2006 01/11/2006 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 6 documented as of this encounter (statuses as of 04/16/2020) Immunizations Name Administration Dates Next Due H1n1 [...] with No / Unsure 03/19/2020 9:02 AM 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 documented as of this encounter Last Filed Vital Signs Not on filedocumented in this encounter Miscellaneous Notes Telephone Encounter - Lennie Hanna MA - 04/16/2020 1:35 PM CSTPlease schedule appointment to discuss injection. Lennie Hanna MA 04/16/2020 1:35 PM elephone Encounter - Zara Borges - 04/16/2020 11:02 AM CSTVicki Mention is a 69 year old female Patient is calling to get scheduled to have another injection. Please call [phone] signed by Zara Borges at 04/16/2020 11:02 AM ARMATURE WINDER REPAIRER documented in this encounter Plan of Treatment Health Maintenance Due Date Last Done Comments HEPATITIS C (HCV) SCREEN 1950 SARS-CoV-2 (COVID-19) Vaccine (1 1964 of 2) DTaP,Tdap,and Td Vaccines (1 - 1967 Tdap) [...] Results Not on filedocumented in this encounter Insurance Payer Benefit Plan / Subscriber ID Effective Phone Address T ype Group Dates [facility] [id number] 2019-Pres Medica re Adv HEALTHCARE - HEALTHCARE ent HMO MANAGED DUAL COMPLETE MEDICARE O [employer] [id number] 2006-Pres [address] [place] [id number] [place] [address] documented as of this encounter
--- NOTE | 2020-04-18 19:07 | RAD REPORT ---
EXAM DESCRIPTION: RAD - Chest Single View - 04/18/2020 7:00 pm CLINICAL HISTORY: SOB Chest pain. COMPARISON: Chest Single View dated 05/06/2016; CHEST SINGLE VIEW dated 06/19/2013; CHEST SINGLE VIEW dated 12/14/2012; CHEST SINGLE VIEW dated 03/21/2012 FINDINGS: Portable technique limits examination quality. Interstitial lung markings are mildly prominent bilaterally. This likely indicates mild interstitial pulmonary edema. The heart is upper limit normal in size. No displaced fractures. IMPRESSION: Mild CHF.
--- NOTE | 2020-04-18 19:47 | RAD REPORT ---
EXAM DESCRIPTION: US - Extrem Venous W Compress Davi - 04/18/2020 7:28 pm CLINICAL HISTORY: SWELLING Bilateral leg edema and swelling. COMPARISON: EXT VENOUS W COMPRESSION DAVI dated 06/20/2013 TECHNIQUE: Real-time sonographic interrogation of the left and right lower extremity deep venous sys tems was performed. FINDINGS: Normal compressibility, flow augmentation, phasic flow and spontaneous flow is identified in both the left and right lower extremity deep venous systems. 4 cm right popliteal Gomez's cyst. IMPRESSION: No sonographic evidence of left or right lower extremity deep venous thrombosis.
[2020-04-18 19:55] LABS: Absolute Lymphocytes (CBC) 2.2 K/uL (0.7-4.9); Basophils % 0.6 % (0-1.3); Lymphocytes % 29.3 % (15.3-44.8); MPV 8.7 fL (7.6-11.3); RBC Red Blood Cell Count 4.31 M/uL (3.86-4.86)
[2020-04-18] MEDS ORDERED: FUROSEMIDE 40 MG/4 ML VIAL ONE (20:00)
[2020-04-18 20:17] LABS: ALT/SGPT 24 U/L (12-78); AST/SGOT 33 U/L (15-37); Albumin 3.5 g/dL (3.4-5.0); Alkaline Phosphatase 78 U/L (45-117); BUN Blood Urea Nitrogen 30 mg/dL (7-18); Bicarbonate 30 mmol/L (21-32); Bilirubin Direct 0.1 mg/dL (0-0.2); Bilirubin Total 0.5 mg/dL (0.2-1.0); Glucose Level 82 mg/dL (74-106); NT PRO-BNP 19 pg/mL (<125); Potassium 3.9 mmol/L (3.5-5.1); Protein, Total 7.5 g/dL (6.4-8.2); Sodium Level 139 mmol/L (136-145); Troponin (Emerg Dept Use Only) < 0.02 ng/mL (0.0-0.045)
--- NOTE | 2020-04-18 20:20 | ER ---
Nurse's Notes [facility] Name: Vicki Mention Age: 69 yrs Sex: Female : 1950 Arrival Date: 04/18/2020 Time: 14:21 Bed 15 Private MD: Varsha Ocampo Diagnosis: Edema, unspecified Presentation: 04/18 14:54 Chief complaint: Patient states: Swelling all over for months. bilateral feet swelling dw noted. denies shortness of breath. Coronavirus screen: Client denies travel out of the [place] in the last 14 days. At this time, the client does not indicate any symptoms associated with coronavirus-19. Ebola Screen: Patient negative for fever greater than or equal to 101.5 degrees Fahrenheit, and additional compatible Ebola Virus Disease symptoms. Initial Sepsis Screen: Does the patient meet any 2 criteria? No. Patient's initial sepsis screen is negative. Does the patient have a suspected source of infection? No. Patient's initial sepsis screen is negative. Risk Assessment: Do you want to hurt yourself or someone else?. Onset of symptoms is unknown. 14:54 Method Of Arrival: Ambulatory dw 14:54 Acuity: BONG 3 dw Triage Assessment: 15:09 General: Appears in no apparent distress. Behavior is calm, cooperative. Pain: Denies dw pain. Musculoskeletal: Capillary refill Range of motion: limited in left ankle and right ankle Reports Denies. 15:10 General: bilateral swelling to both lower extremities. patient states she weighed 246 dw or 256 yesterday. States primary doctor doubled furosemide dosage yesterday. Denies shortness of breath.. Historical: - Home Meds: 15:05 Clonidine Oral [Active]; Tramadol Oral [Active]; Vitamin D3 5,000 unit oral tab daily dw [Active]; 15:08 furosemide 40 mg Oral tab 2 tabs once daily [Active]; ipratropium-albuterol 0.5 mg-3 dw mg(2.5 mg base)/3 mL Inhl nebu 3 mL 4 times per day [Active]; - PMHx: 15:05 Arthritis; Cancer, Breast; Hypertension; dw - Immunization history:: Adult Immunizations up to date. - Social history:: Smoking status: Patient denies any tobacco usage or history of. Assessment: 19:08 Reassessment: Patient and/or family updated on plan of care and expected duration. Pain ll2 level reassessed. Patient is alert, oriented x 3, equal unlabored respirations, skin warm/dry/pink. Vital Signs: 14:54 BP 114 / 53; Pulse 66; Resp 18; Temp 97.9; Pulse Ox 99% ; Weight 116.12 kg; Height 5 ft. 6 in. (167.64 cm); Pain 0/10; 19:08 BP 100 / 48; Pulse 59; Resp 16; Pulse Ox 99% on R/A; ll2 14:54 Body Mass Index 41.32 (116.12 kg, 167.64 cm) ED Course: 14:21 Patient arrived in ED. am4 14:21 Varsha Ocampo MD is Private Physician. am4 15:03 Triage completed. 18:33 [facility] 18:33 Gabino Mitchell MD is Attending Physician. [facility] 19:03 Lily Li, SHERRY is Primary Nurse. ll2 19:35 Inserted saline lock: 20 gauge in right antecubital area, using aseptic technique. 4 Blood collected. 19:37 Troponin (emerg Dept Use Only) Sent. ll2 19:37 PT-INR Sent. ll2 20:08 US Extremity Venous W Compression Davi Sent. ll2 20:20 Varsha Ocampo MD is Referral Physician. [facility] Administered Medications: 20:08 Drug: Furosemide 40 mg Route: IVP; Site: left antecubital; ll2 Outcome: 20:20 Discharge ordered by . [facility] 20:43 Patient left the ED. ll2 Signatures: Emely Farias RN RN Reece Aguiar PA PA [facility] Mikal Hernandez 4 Lily Li RN RN ll2 Lynette Anderson 4 Corrections: (The following items were deleted from the chart) 15:09 15:05 Allergies: No Known Allergies; [facility]
--- NOTE | 2020-04-18 20:21 | EDPHYS ---
Physician Documentation [facility] Name: Vicki Mention Age: 69 yrs Sex: Female : 1950 Arrival Date: 04/18/2020 Time: 14:21 Bed 15 Private MD: Varsha Ocampo ED Physician Gabino Mitchell HPI: 04/18 18:45 This 69 yrs old Black Female presents to ER via Ambulatory with complaints of Feet jmm Swelling. 18:45 The patient presents with swelling. Onset: The symptoms/episode began/occurred jmm gradually, 3 month(s) ago. Modifying factors: The symptoms are alleviated by nothing. the symptoms are aggravated by nothing. This is a 69 year old female with a history of htn that presents to the ED with complaints of swelling to the legs which has been ongoing for the past 3 months. States she is now sob. Advised by her PCP to increased lasix dose. . Historical: - Home Meds: 15:05 Clonidine Oral [Active]; Tramadol Oral [Active]; Vitamin D3 5,000 unit oral tab daily dw [Active]; 15:08 furosemide 40 mg Oral tab 2 tabs once daily [Active]; ipratropium-albuterol 0.5 mg-3 dw mg(2.5 mg base)/3 mL Inhl nebu 3 mL 4 times per day [Active]; - PMHx: 15:05 Arthritis; Cancer, Breast; Hypertension; dw - Immunization history:: Adult Immunizations up to date. - Social history:: Smoking status: Patient denies any tobacco usage or history of. ROS: 18:45 Constitutional: Negative for fever, chills, and weight loss, Cardiovascular: Negative jmm for chest pain, palpitations, and edema. 18:45 Respiratory: Positive for shortness of breath. 18:45 All other systems are negative. Exam: 18:45 Constitutional: This is a well developed, well nourished patient who is awake, alert, jmm and in no acute distress. Head/Face: atraumatic. Eyes: EOMI, no conjunctival erythema appreciated ENT: Moist Mucus Membranes Neck: Trachea midline, Supple Chest/axilla: Normal chest wall appearance and motion. Cardiovascular: Regular rate and rhythm. No edema appreciated Respiratory: Normal respirations, no respiratory distress appreciated Abdomen/GI: Non distended, soft Back: Normal ROM Skin: General appearance color normal 18:45 Musculoskeletal/extremity: bilateral pitting edema. 18:45 Skin: Appearance: Color: normal in color. 18:45 Neuro: Orientation: is normal, Mentation: is normal, Memory: is normal. 18:45 Psych: Behavior/mood is pleasant, cooperative. Vital Signs: 14:54 BP 114 / 53; Pulse 66; Resp 18; Temp 97.9; Pulse Ox 99% ; Weight 116.12 kg; Height 5 dw ft. 6 in. (167.64 cm); Pain 0/10; 19:08 BP 100 / 48; Pulse 59; Resp 16; Pulse Ox 99% on R/A; ll2 14:54 Body Mass Index 41.32 (116.12 kg, 167.64 cm) dw MDM: 18:42 Patient medically screened. [facility] 20:19 Data reviewed: vital signs, nurses notes. Counseling: I had a detailed discussion with nikolai the patient and/or guardian regarding: the historical points, exam findings, and any diagnostic results supporting the discharge/admit diagnosis, lab results, radiology results, the need for outpatient follow up, to return to the emergency department if symptoms worsen or persist or if there are any questions or concerns that arise at home. ED course: Patient is alert and non toxic in appearance in the ED. No signs of resp distress. Non hypoxic. Advised to follow up with pcp for reevaluation. Patient understood and agrees with the plan of care. . 04/18 18:44 Order name: Basic Metabolic Panel [facility] 04/18 18:44 Order name: CBC with Diff [facility] 04/18 18:44 Order name: LFT's [facility] 04/18 18:44 Order name: Magnesium [facility] 04/18 18:44 Order name: NT PRO-BNP [facility] 04/18 18:44 Order name: PT-INR [facility] 04/18 18:44 Order name: Troponin (emerg Dept Use Only) [facility] 04/18 20:04 Order name: CBC with Automated Diff; Complete Time: 20:05 [facility] 04/18 20:08 Order name: Protime (+INR); Complete Time: 20:08 [facility] 04/18 20:17 Order name: Basic Metabolic Panel; Complete Time: 20:19 [facility] 04/18 20:17 Order name: Liver (Hepatic) Function; Complete Time: 20:19 [facility] 04/18 20:17 Order name: Troponin (Emerg Dept Use Only); Complete Time: 20:19 [facility] 04/18 20:17 Order name: NT PRO-BNP; Complete Time: 20:19 [facility] 04/18 20:17 Order name: Magnesium; Complete Time: 20:19 [facility] 04/18 18:44 Order name: XRAY Chest (1 view) [facility] 04/18 18:44 Order name: EKG; Complete Time: 18:45 [facility] 04/18 18:44 Order name: Cardiac monitoring; Complete Time: 20:12 [facility] 04/18 18:44 Order name: EKG - Nurse/Tech; Complete Time: 20:12 [facility] 04/18 18:44 Order name: IV Saline Lock; Complete Time: 19:37 [facility] 04/18 18:44 Order name: Labs collected and sent; Complete Time: 19:43 [facility] 04/18 18:44 Order name: O2 Per Protocol; Complete Time: 19:44 [facility] 04/18 18:44 Order name: O2 Sat Monitoring; Complete Time: 19:44 [facility] 04/18 18:44 Order name: US Extremity Venous W Compression Davi [facility] 04/18 19:09 Order name: RAD; Complete Time: 19:31 [facility] 04/18 19:49 Order name: US; Complete Time: 19:51 EDMS Administered Medications: 20:08 Drug: Furosemide 40 mg Route: IVP; Site: left antecubital; ll2 Disposition: 04/19 06:56 Co-signature as Attending Physician, Gabino Mitchell MD I agree with the assessment and kdr plan of care. Disposition: 04/18/20 20:20 Discharged to Home. Impression: Edema, unspecified. - Condition is Stable. - Discharge Instructions: Peripheral Edema. - Medication Reconciliation Form, Thank You Letter, Antibiotic Education, Prescription Opioid Use form. - Follow up: Varsha Ocampo MD; When: 2 - 3 days; Reason: Recheck today's complaints, Continuance of care, Re-evaluation by your physician. Signatures: Dispatcher [facility] Emely Farias RN RN dw Rittger, Kevin, MD MD kdr Mickail, Joel, PA PA [facility] Lily Li RN RN ll2 Corrections: (The following items were deleted from the chart) 04/18 15:09 15:05 Allergies: No Known Allergies; dw dw 20:43 20:20 04/18/2020 20:20 Discharged to Home. Impression: Edema, unspecified. Condition is ll2 Stable. Forms are Medication Reconciliation Form, Thank You Letter, Antibiotic Education, Prescription Opioid Use. Follow up: Varsha Ocampo; When: 2 - 3 days; Reason: Recheck today's complaints, Continuance of care, Re-evaluation by your physician. nikolai
[2020-04-18 23:09] VITALS: TEMP 97.9; O2SAT 99
[2020-04-18 23:10] VITALS: BP 100/48
--- NOTE | 2020-04-19 07:55 | EKG ---
Test Date: 2020-04-18 Test Time: 19:56:14 [employer] Pilot: SHEREE MEASUREMENT RESULTS: Intervals: Rate: 68 OR: 146 QRSD: 72 QT: 416 QTc: 442 [place]: P: 46 OR: 146 QRS: -18 T: -22 INTERPRETIVE STATEMENTS: Normal sinus rhythm Voltage criteria for left ventricular hypertrophy Abnormal ECG Compared to ECG 05/06/2016 12:44:20 T-wave abnormality no longer present Electronically Signed On 04-19-20 07:49:55 SENIOR MEDICAL TRANSCRIPTIONIST by Tex Banerjee
== END 2020-04-18 20:43 | disposition home or self-care (01) ==
LOC: ER 14:16
DX: R22.43 Localized swelling, mass and lump, lower limb, bilateral (principal); M19.90 Unspecified osteoarthritis, unspecified site; Z85.3 Personal history of malignant neoplasm of breast; I10 Essential (primary) hypertension
CPT/HCPCS: 93005; 85025; 80048; 36415; 83735; 85610; 80076; 84484; 83880; 71045; 93970; 96374; 99284; J1940

== ENCOUNTER 2020-08-28 16:08 | Observation (INO) | payer OTHER ==
--- OUTSIDE RECORDS SUMMARY | 2020-08-28 16:11 | XMS REPORT | Continuity of Care Document ---
:[address] [facility] t Address [address] [place] [address] Care Team Providers Name Role Phone Luisa Horne Attending Clinician Problems This patient has no known problems. Allergies, Adverse Reactions, Alerts This patient has no known allergies or adverse reactions. Medications This patient has no known medications. Procedures This patient has no known procedures. Encounters Start End Encounter Admission Attending Care Care Encounter Source Date/Time Date/Time Type Type Clinicians Facility Department ID 2020-08-28 2020-08-28 Emergency TRAUMA [id number] 14:18:00 15:06:00 [facility]I [id number] 2020-04-22 2020-04-22 Office MEGHNA Gomez [id number] 13:26:03 14:15:12 Visit [facility] [id number] Surgical [id number] Specialti [id number] [address] [place] Results This patient has no known results.
[2020-08-28 17:18] LABS: Absolute Lymphocytes (CBC) 1.6 K/uL (0.7-4.9); Basophils % 0.6 % (0-1.3); Hematocrit 34.9 % (36.0-45.0); Lymphocytes % 21.8 % (15.3-44.8); MPV 9.2 fL (7.6-11.3); RBC Red Blood Cell Count 4.11 M/uL (3.86-4.86)
[2020-08-28 17:29] LABS: Protime INR 1.03
--- NOTE | 2020-08-28 17:29 | RAD REPORT ---
EXAM DESCRIPTION: CT - CTHCSPWOC - 08/28/2020 5:17 pm CLINICAL HISTORY: Trauma, head and neck injury. fall COMPARISON: No comparisons TECHNIQUE: Axial 5 mm thick images of the head were obtained. Axial 2 mm thick images of the cervical spine were obtained with sagittal and coronal reconstruction images generated and reviewed. All CT scans are performed using dose optimization technique as appropriate and may include automated exposure control or mA/KV adjustment according to patient size. FINDINGS: CT HEAD WITHOUT CONTRAST: No acute hemorrhage, hydrocephalus or extra-axial collection is identified.No areas of brain edema or midline shift. The paranasal sinuses and mastoids are clear.The calvarium is intact. CT CERVICAL SPINE WITHOUT CONTRAST: No fracture or subluxation.Moderate lower cervical degenerative changes are present.No prevertebral s oft tissues swelling is identified. IMPRESSION: No acute intracranial or cervical spine findings.
--- NOTE | 2020-08-28 17:40 | RAD REPORT ---
EXAM DESCRIPTION: RAD - Chest Single View - 08/28/2020 5:23 pm CLINICAL HISTORY: fall, syncope Chest pain. COMPARISON: Chest Single View dated 04/18/2020; Chest Single View dated 05/06/2016; CHEST SINGLE VIEW dated 06/19/2013; CHEST SINGLE VIEW dated 12/14/2012 FINDINGS: Portable technique limits examination quality. Mild interstitial pulmonary edema. The heart is upper limit normal in size. No displaced fractures.Mi ld arthritic involve both shoulders. IMPRESSION: Mild CHF.
--- NOTE | 2020-08-28 17:41 | RAD REPORT ---
EXAM DESCRIPTION: RAD - Elbow Right 3 View - 08/28/2020 5:23 pm CLINICAL HISTORY: fall Fall, trauma, pain COMPARISON: No comparisons FINDINGS: No acute fracture or dislocation seen.
[2020-08-28 17:42] LABS: ALT/SGPT 23 U/L (12-78); AST/SGOT 30 U/L (15-37); Albumin 3.4 g/dL (3.4-5.0); Alkaline Phosphatase 88 U/L (45-117); BUN Blood Urea Nitrogen 26 mg/dL (7-18); Bicarbonate 28 mmol/L (21-32); Bilirubin Direct 0.1 mg/dL (0-0.2); Bilirubin Total 0.3 mg/dL (0.2-1.0); Glucose Level 82 mg/dL (74-106); Magnesium 2.2 mg/dL (1.8-2.4); NT PRO-BNP 96 pg/mL (<125); Potassium 4.1 mmol/L (3.5-5.1); Sodium Level 139 mmol/L (136-145); Troponin (Emerg Dept Use Only) < 0.02 ng/mL (0.0-0.045)
--- NOTE | 2020-08-28 17:43 | RAD REPORT ---
EXAM DESCRIPTION: RAD - Shoulder Right 2 View - 08/28/2020 5:23 pm CLINICAL HISTORY: fall Fall, trauma, pain COMPARISON: <Comparisons> FINDINGS: Moderate AC joint degenerative changes and glenohumeral joint degenerative changes are see n. No acute fracture or dislocation seen.
--- NOTE | 2020-08-28 17:59 | RAD REPORT ---
EXAM DESCRIPTION: US - Extrem Venous W Compress Davi - 08/28/2020 5:51 pm CLINICAL HISTORY: SWELLING Bilateral leg edema and swelling. COMPARISON: <Comparisons> TECHNIQUE: Real-time sonographic interrogation of the left and right lower extremity deep venous sys tems was performed. FINDINGS: Normal compressibility, flow augmentation, phasic flow and spontaneous flow is identified in both the left and right lower extremity deep venous systems. IMPRESSION: No sonographic evidence of left or right lower extremity deep venous thrombosis.
--- NOTE | 2020-08-28 18:48 | EDPHYS ---
Physician Documentation [facility] Name: Vicki Mention Age: 70 yrs Sex: Female : 1950 Arrival Date: 08/28/2020 Time: 16:12 Bed 24 Private MD: ED Physician Dago Hill HPI: 08/28 16:49 This 70 yrs old Black Female presents to ER via Wheelchair with complaints of Fall jmm Injury. 16:49 Details of fall: The patient fell from an upright position, while walking. Onset: The jmm symptoms/episode began/occurred acutely, today. Associated injuries: The patient sustained right shoulder, right elbow. Patient complains of right shoulder pain, right sided elbow pain after a fall. Patient states she passed out while walking earlier today. . Historical: - Allergies: 16:20 No Known Allergies; jl7 - Home Meds: 16:40 Clonidine Oral [Active]; furosemide 40 mg Oral tab 2 tabs once daily [Active]; Tramadol ap3 Oral [Active]; Vitamin D3 5,000 unit Oral tab daily [Active]; ipratropium-albuterol 0.5 mg-3 mg(2.5 mg base)/3 mL Inhl nebu 3 mL 4 times per day [Active]; - PMHx: 16:20 Arthritis; Cancer, Breast; Hypertension; Chronic pain; jl7 - PSHx: 16:20 None; jl7 - Immunization history:: Adult Immunizations up to date, Client reports receiving the 2nd dose of the Covid vaccine. - Social history:: Smoking status: Patient denies any tobacco usage or history of. ROS: 16:49 Constitutional: Negative for fever, chills, and weight loss, Cardiovascular: Negative jmm for chest pain, palpitations, and edema, Respiratory: Negative for shortness of breath, cough, wheezing, and pleuritic chest pain. 16:49 MS/extremity: Positive for injury or acute deformity. 16:49 Neuro: Positive for syncope. 16:49 All other systems are negative. Exam: 16:49 Constitutional: This is a well developed, well nourished patient who is awake, alert, jmm and in no acute distress. Head/Face: atraumatic. Eyes: EOMI, no conjunctival erythema appreciated ENT: Moist Mucus Membranes Neck: Trachea midline, Supple Chest/axilla: Normal chest wall appearance and motion. Cardiovascular: Regular rate and rhythm. No edema appreciated Respiratory: Normal respirations, no respiratory distress appreciated Abdomen/GI: Non distended, soft Back: Normal ROM Skin: General appearance color normal 16:49 Musculoskeletal/extremity: ROM: right shoulder, right elbow. 16:49 Skin: Appearance: Color: normal in color. 16:49 Neuro: Orientation: is normal, Mentation: is normal, Memory: is normal. 16:49 Psych: Behavior/mood is pleasant, cooperative. Vital Signs: 16:17 BP 128 / 73; Pulse 70; Resp 17; Temp 98.4; Pulse Ox 100% ; Weight 115.21 kg; Height 5 jl7 ft. 6 in. (167.64 cm); Pain 8/10; 16:41 BP 135 / 62; Pulse 68; Pulse Ox 100% on R/A; ap3 18:47 BP 124 / 67 RA Sitting (auto/); Pulse 65; Resp 17; Pulse Ox 100% on R/A; ap3 19:03 BP 141 / 65 RA Sitting (auto/); Pulse 56; Resp 18; Pulse Ox 100% on R/A; ap3 19:04 BP 141 / 65; Pulse 59; ap3 16:17 Body Mass Index 41.00 (115.21 kg, 167.64 cm) jl7 MDM: 16:49 Patient medically screened. [facility] 18:39 Data reviewed: vital signs, nurses notes. Counseling: I had a detailed discussion with nikolai the patient and/or guardian regarding: the historical points, exam findings, and any diagnostic results supporting the discharge/admit diagnosis, radiology results, the need for further work-up and treatment in the hospital. ED course: I discussed the patient with Scot Cespedes whom accepted the patient to Dr. Deep cannon. . 08/28 16:50 Order name: Basic Metabolic Panel [facility] 08/28 16:50 Order name: CBC with Diff [facility] 08/28 16:50 Order name: LFT's [facility] 08/28 16:50 Order name: Magnesium [facility] 08/28 16:50 Order name: NT PRO-BNP [facility] 08/28 16:50 Order name: PT-INR; Complete Time: 17:38 [facility] 08/28 16:50 Order name: Troponin (emerg Dept Use Only); Complete Time: 17:45 m 08/28 16:50 Order name: Basic Metabolic Panel; Complete Time: 17:45 EDMS 08/28 16:50 Order name: CBC with Automated Diff; Complete Time: 17:29 EDMS 08/28 16:50 Order name: Liver (Hepatic) Function; Complete Time: 17:45 EDMS 08/28 16:50 Order name: Magnesium; Complete Time: 17:45 EDMS 08/28 16:51 Order name: NT PRO-BNP; Complete Time: 17:45 EDMS 08/28 18:49 Order name: COVID-19 : Document "Date of Symptom Onset" if Symptomatic. ap3 08/28 19:17 Order name: CORONAVIRUS EDMS 08/28 16:50 Order name: XRAY Chest (1 view); Complete Time: 17:42 m 08/28 16:50 Order name: EKG; Complete Time: 16:51 [facility] 08/28 16:50 Order name: Cardiac monitoring; Complete Time: 18:47 [facility] 08/28 16:50 Order name: EKG - Nurse/Tech; Complete Time: 17:01 [facility] 08/28 16:50 Order name: IV Saline Lock; Complete Time: 17:01 [facility] 08/28 16:50 Order name: Labs collected and sent; Complete Time: 17:01 [facility] 08/28 16:50 Order name: O2 Per Protocol; Complete Time: 17:01 [facility] 08/28 16:50 Order name: O2 Sat Monitoring; Complete Time: 17:01 [facility] 08/28 16:50 Order name: Shoulder Right (2 View) XRAY; Complete Time: 17:45 [facility] 08/28 16:50 Order name: Elbow Right 3 View XRAY; Complete Time: 17:42 [facility] 08/28 16:50 Order name: CT Head C Spine; Complete Time: 17:31 [facility] 08/28 16:50 Order name: US Extremity Venous W Compression Davi; Complete Time: 18:01 [facility] 08/28 20:08 Order name: SARS-COV-2 RT PCR EDMS Administered Medications: 18:46 Drug: Lasix (furosemide) 40 mg Route: IVP; Site: right antecubital; ap3 19:04 Follow up: BP 141 / 65; Pulse 59 bpm ap3 Disposition: 08/28/20 18:47 Hospitalization ordered by Danis Adame for Observation. Preliminary diagnosis is Syncope and collapse. - Bed requested for Telemetry/MedSurg (observation). - Status is Observation. ap3 - Condition is Stable. - Problem is new. - Symptoms are unchanged. Addendum: 08/31/2020 07:03 Co-signature as Attending Physician, Dago Hill MD. r n Signatures: Dispatcher [employer] EDMS Reece Aguiar PA PA [facility] Dago Hill MD MD rn Scot Cespedes, CHILDREN'S COUNSELOR-C CHILDREN'S COUNSELOR-Cla1 Franny Haas RN RN tl1 Aries Costa, RN RN jl7 Lucy Leong RN RN ap3 Corrections: (The following items were deleted from the chart) 08/28 20:17 18:47 Hospitalization Ordered by Danis Adame DO for Observation. Preliminary tl1 diagnosis is Syncope and collapse. Bed requested for Telemetry/MedSurg (observation). Status is Observation. Condition is Stable. Problem is new. Symptoms are unchanged. [facility] 21:46 20:17 08/28/2020 18:47 Hospitalization Ordered by Danis Adame DO for Observation. ap3 Preliminary diagnosis is Syncope and collapse. Bed requested for Telemetry/MedSurg (observation). Status is Observation. Condition is Stable. Problem is new. Symptoms are unchanged. tl1
--- NOTE | 2020-08-28 18:48 | ER ---
Nurse's Notes [facility] [place] Name: Vicki Chisholm Age: 70 yrs Sex: Female : 1950 Arrival Date: 08/28/2020 Time: 16:12 Bed 24 Private MD: Diagnosis: Syncope and collapse Presentation: 08/28 16:17 Chief complaint: Patient states: Fell while walking because I was in the heat and I jl7 fell onto my right shoulder and elbow, did not hit head, denies loss of consciousness, went to [facility] but they were too busy. Coronavirus screen: Client denies travel out of the [place] in the last 14 days. At this time, the client does not indicate any symptoms associated with coronavirus-19. Ebola Screen: No symptoms or risks identified at this time. Initial Sepsis Screen: Does the patient meet any 2 criteria? No. Patient's initial sepsis screen is negative. Does the patient have a suspected source of infection? No. Patient's initial sepsis screen is negative. Risk Assessment: Do you want to hurt yourself or someone else? Patient reports no desire to harm self or others. Onset of symptoms was August 28, 2020 at 13:00. 16:17 Method Of Arrival: Wheelchair jl7 16:17 Acuity: BONG 4 jl7 16:51 Acuity: BONG 3 iw Triage Assessment: 16:20 General: Appears in no apparent distress. uncomfortable, Behavior is calm, cooperative, jl7 appropriate for age. Pain: Complains of pain in posterior aspect of right shoulder and right elbow Pain currently is 8 out of 10 on a pain scale. Historical: - Allergies: 16:20 No Known Allergies; jl7 - Home Meds: 16:40 Clonidine Oral [Active]; furosemide 40 mg Oral tab 2 tabs once daily [Active]; Tramadol ap3 Oral [Active]; Vitamin D3 5,000 unit Oral tab daily [Active]; ipratropium-albuterol 0.5 mg-3 mg(2.5 mg base)/3 mL Inhl nebu 3 mL 4 times per day [Active]; - PMHx: 16:20 Arthritis; Cancer, Breast; Hypertension; Chronic pain; jl7 - PSHx: 16:20 None; jl7 - Immunization history:: Adult Immunizations up to date, Client reports receiving the 2nd dose of the Covid vaccine. - Social history:: Smoking status: Patient denies any tobacco usage or history of. Screenin:39 Abuse screen: Denies threats or abuse. Nutritional screening: No deficits noted. ap3 Tuberculosis screening: No symptoms or risk factors identified. Fall Risk Fall in past 12 months (25 points). Secondary diagnosis (15 points) impaired mobility, No IV (0 pts). Ambulatory Aid- Crutches/Cane/Walker (15 pts). Gait- Weak (10 pts.). Mental Status- Oriented to own ability (0 pts). Total Scott Fall Scale indicates High Risk Score (45 or more points). Fall prevention measures have been instituted. Side Rails Up X 2 Placed Close to Nursing Station Frequent Obs/Assessments Occuring Family Present and informed to notify staff if the need to leave the bedside As available patient and family educated on Fall Prevention Program and Strategies. Assessment: 16:37 General: Appears in no apparent distress. uncomfortable, Behavior is calm, cooperative, ap3 appropriate for age. Pain: Complains of pain in posterior aspect of right shoulder and right arm and right elbow Pain does not radiate. Pain currently is 8 out of 10 on a pain scale. Pain began suddenly, Aggravated by increased activity. Neuro: Level of Consciousness is awake, alert, obeys commands, Oriented to person, place, time, situation. Cardiovascular: Denies chest pain, shortness of breath, Capillary refill < 3 seconds Patient's skin is warm and dry. Respiratory: Airway is patent Respiratory effort is even, unlabored, Respiratory pattern is regular, symmetrical. GI: No signs and/or symptoms were reported involving the gastrointestinal system. : No signs and/or symptoms were reported regarding the genitourinary system. EENT: No signs and/or symptoms were reported regarding the EENT system. Derm:. Musculoskeletal: Swelling present in right foot and left foot. 18:39 Reassessment: Patient and/or family updated on plan of care and expected duration. Pain ap3 level reassessed. Patient is alert, oriented x 3, equal unlabored respirations, skin warm/dry/pink. Vital Signs: 16:17 BP 128 / 73; Pulse 70; Resp 17; Temp 98.4; Pulse Ox 100% ; Weight 115.21 kg; Height 5 jl7 ft. 6 in. (167.64 cm); Pain 8/10; 16:41 BP 135 / 62; Pulse 68; Pulse Ox 100% on R/A; ap3 18:47 BP 124 / 67 RA Sitting (auto/); Pulse 65; Resp 17; Pulse Ox 100% on R/A; ap3 19:03 BP 141 / 65 RA Sitting (auto/); Pulse 56; Resp 18; Pulse Ox 100% on R/A; ap3 19:04 BP 141 / 65; Pulse 59; ap3 16:17 Body Mass Index 41.00 (115.21 kg, 167.64 cm) jl7 ED Course: 16:12 Patient arrived in ED. ds1 16:19 Triage completed. jl7 16:20 Arm band placed on right wrist. jl7 16:32 Lucy Leong RN is Primary Nurse. ap3 16:38 Reece Aguiar PA is PHCP. [facility] 16:38 Dago Hill MD is Attending Physician. m 16:40 Patient has correct armband on for positive identification. Call light in reach. Pulse ap3 ox on. NIBP on. Door closed. Noise minimized. Warm blanket given. 16:55 Inserted saline lock: 20 gauge in right antecubital area, using aseptic technique. ap3 Blood collected. 17:05 imaging at the bedside. ap3 17:[address] via wheelchair. ap3 17:17 CT Head C Spine In Process Unspecified. EDMS 17:23 XRAY Chest (1 view) In Process Unspecified. EDMS 17:23 Shoulder Right (2 View) XRAY In Process Unspecified. EDMS 17:23 Elbow Right 3 View XRAY In Process Unspecified. EDMS 17:51 US Extremity Venous W Compression Davi In Process Unspecified. EDMS 18:01 Patient moved back from CT. ap3 18:15 Nurse Practitioner and/or Physician Business Account Manager to see patient. ap3 18:44 Danis Adame DO is Hospitalizing Provider. jmm 20:28 attempted report to 4th floor. was informed the receiving nurse will return my phone ap3 call. 20:39 Report given to dione antoine. ap3 20:40 No provider procedures requiring assistance completed. Patient admitted, IV remains in ap3 place. Administered Medications: 18:46 Drug: Lasix (furosemide) 40 mg Route: IVP; Site: right antecubital; ap3 19:04 Follow up: BP 141 / 65; Pulse 59 bpm ap3 Outcome: 18:47 Decision to Hospitalize by Provider. nikolai 20:40 Admitted to Tele accompanied by tech, via wheelchair, room 401, with chart, Report ap3 called to [place] 21:46 Condition: good ap3 21:46 Patient left the ED. ap3 Signatures: Dispatcher [employer] EDMS Reece Aguiar PA PA jmm Sanford, Demi ds1 Maliha Jordan, RN RN iw Aries Costa RN RN jl7 Lucy Leong RN RN ap3
[2020-08-28] MEDS ORDERED: FUROSEMIDE 40 MG/4 ML VIAL ONE (19:01)
--- NOTE | 2020-08-28 20:44 | P.HP ---
Certification for Inpatient Patient admitted to: Observation With expected LOS: <2 Midnights Patient will require the following post-hospital care: None Practitioner: I am a practitioner with admitting privileges, knowledge of patient current condition, hospital course, and medical plan of care. Services: Services provided to patient in accordance with Admission requirements found in Title 42 Section 412.3 of the Code of Federal Regulations Patient History Date of Service: 08/28/20 Primary Care Provider: Trudi watson Reason for admission: Syncope, CHF exacerbation History of Present Illness: 70-year-old female with history of hypertension, CHF presents emergency department for syncope/collapse. Patient reports that she was walking out of the building and collapsed, patient denies any symptoms leading up to the event including palpitations, headache, chest pain, shortness of breath, denies mechanical fall reports she does not know why she fell, denies loss of consciousness does remember the whole event. 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 Patient does retake 80 mg of Lasix daily. Patient's evaluation in the emergency department relatively unremarkable, patient with CKD which appears to be relatively stable CKD 3 chest x-ray demonstrates mild CHF, patient with 2+ pitting edema bilateral lower extremities. ED provider wishes to admit for syn cope/CHF observation. Allergies No Known Allergies Allergy (Unverified 05/28/11 10:42) Home Medications: Aspirin 81 mg PO DAILY 05/28/11 Clonidine HCl [Catapres*] 0.2 mg PO BID 05/28/11 Albuterol Sulfate [Proair Hfa] 2 puff IH Q4HR 06/20/13 Calcium Carbonate 600 mg PO DAILY 06/20/13 Esomeprazole Mag Trihydrate [Nexium] 40 mg PO DAILY 06/20/13 Furosemide [Lasix*] 40 mg PO DAILY 06/20/13 Multivit,Ther Iron,Ca,FA & Min [Centrum Tablet*] 1 tab PO DAILY 06/20/13 Tramadol HCl [Ultram] 50 mg PO Q6H PRN 06/20/13 Valsartan/Hydrochlorothiazide [Diovan Hct 80-12.5 mg Tablet] 1 each PO DAILY #30 tablet 06/21/13 - Past Medical/Surgical History Diabetic: No -: HTN -: Breast CA -: Arthritis -: Asthma -: GERD -: CHF -: Sleep Apnea -: double mastectomy Psychosocial/ Personal History: Patient lives at home alone - Family History Mother -: Cancer Brother -: Cancer - Social History Smoking Status: Never smoker Alcohol use: No CD- Drugs: No Caffeine use: No Place of Residence: Home Review of Systems 10-point ROS is otherwise unremarkable Cardiovascular: Edema, Other (Syncope) Physical Examination - Physical Exam General: Alert, In no apparent distress, Oriented x3, Obese HEENT: Atraumatic, PERRLA, Mucous membr. moist/pink Neck: Supple, 2+ carotid pulse no bruit, No LAD Respiratory: Clear to auscultation bilaterally, Normal air movement Cardiovascular: Regular rate/rhythm, Normal S1 S2, Edema (2+ pitting edema bilateral lower extremity) Capillary refill: <2 Seconds Gastrointestinal: Normal bowel sounds, No tenderness Musculoskeletal: No tenderness Integumentary: No rashes Neurological: Normal gait, Normal speech, Normal strength at 5/5 x4 extr, Normal tone, Normal affect Lymphatics: No axilla or inguinal lymphadenopathy - Studies Laboratory Data (last 24 hrs) 08/28/20 17:00: PT 11.9, INR 1.03 08/28/20 17:00: WBC 7.30, Hgb 11.2 L, Hct 34.9 L, Plt Count 244 08/28/20 17:00: Sodium 139, Potassium 4.1, BUN 26 H, Creatinine 1.82 H, Glucose 82, Magnesium 2.2, Total Bilirubin 0.3, AST 30, ALT 23, Alkaline Phosphatase 88 Assessment and Plan - Plan Assessment Syncope likely secondary to Acute on chronic diastolic congestive heart failure CKD 3 Hypertension GERD Plan Syncope likely secondary to Acute on chronic diastolic congestive heart failure: Echocardiogram, carotid ultrasound ordered. Monitor on telemetry. Patient appears he overloaded, will continue with IV Lasix, fluid restrictions, cardiology consulted. DVT prophylaxis Lovenox 40 mg subcutaneous once daily. CKD 3: GFR relatively stable, will continue to monitor closely with daily labs, consult nephrology as necessary. Hypertension: Obtain and continue home medications GERD: Obtain and continue home medications Discharge Plan: Home Plan to discharge in: 24 Hours - Advance Directives Does patient have a Living Will: No Does patient have a Durable POA for Healthcare: No - Code Status/Comfort Care Code Status Assessed: Yes (Full code) Critical Care: No Time Spent Managing Pts Care (In Minutes): 55
[2020-08-28] MEDS ORDERED: ONDANSETRON 4 MG/2 ML VIAL IV PRN (21:55)
[2020-08-28] MEDS ORDERED: TRAMADOL HCL 50 MG TAB PO PRN (21:55)
[2020-08-28] MEDS ORDERED: ACETAMINOPHEN 500 MG TAB PO PRN (21:55)
[2020-08-28 22:03] VITALS: BMI 40.4
[2020-08-29 05:12] LABS: Absolute Lymphocytes (CBC) 1.8 K/uL (0.7-4.9); Basophils % 0.8 % (0-1.3); Hematocrit 30.8 % (36.0-45.0); Lymphocytes % 25.1 % (15.3-44.8); MPV 9.3 fL (7.6-11.3); RBC Red Blood Cell Count 3.69 M/uL (3.86-4.86)
[2020-08-29 05:18] LABS: ALT/SGPT 17 U/L (12-78); AST/SGOT 24 U/L (15-37); Albumin 2.9 g/dL (3.4-5.0); Alkaline Phosphatase 71 U/L (45-117); BUN Blood Urea Nitrogen 23 mg/dL (7-18); Bicarbonate 28 mmol/L (21-32); Bilirubin Total 0.4 mg/dL (0.2-1.0); Glucose Level 78 mg/dL (74-106); HDL Cholesterol 64 mg/dL (40-60); LDL Cholesterol, Calculated 101 (<130); Magnesium 2.1 mg/dL (1.8-2.4); Potassium 3.7 mmol/L (3.5-5.1); Protein, Total 6.8 g/dL (6.4-8.2); Sodium Level 142 mmol/L (136-145); Troponin I < 0.02 ng/mL (0.0-0.045)
[2020-08-29] MEDS ORDERED: PNEUMOCOCCAL VACCINE 0.5 ML IMVAC ONE (08:00)
[2020-08-29] MEDS ORDERED: POTASSIUM CL SA 10 MEQ TAB PO ONE (09:00)
[2020-08-29] MEDS ORDERED: ENOXAPARIN 40 MG/0.4 ML SQ SCH (09:00)
[2020-08-29] MEDS ORDERED: FUROSEMIDE 40 MG/4 ML VIAL IV SCH (09:00)
[2020-08-29] MEDS ORDERED: ENOXAPARIN 30 MG/0.3 ML SQ SCH (09:00)
--- NOTE | 2020-08-29 09:53 | P.DS ---
Admission Date: 08/28/20 Discharge Date: 08/29/20 Primary Care Provider: Low Moor shirley Disposition: ROUTINE DISCHARGE Discharge Condition: GOOD Reason for Admission: Syncope, CHF exacerbation Consultations: Cardiology-Dr. Banerjee Procedures: COVID: Negative ECHO: Obtained. Prior echo showed normal ejection fraction. CT Head Neck: FINDINGS: CT HEAD WITHOUT CONTRAST: No acute hemorrhage, hydrocephalus or extra-axial collection is identified.No areas of brain edema or midline shift. The paranasal sinuses and mastoids are clear.The calvarium is intact. CT CERVICAL SPINE WITHOUT CONTRAST: No fracture or subluxation.Moderate lower cervical degenerative changes are present.No prevertebral soft tissues swelling is identified. IMPRESSION: No acute intracranial or cervical spine findings. Xray: COMPARISON: No comparisons FINDINGS: No acute fracture or dislocation seen. COMPARISON: <Comparisons> FINDINGS: Moderate AC joint degenerative changes and glenohumeral joint degenerative changes are seen. No acute fracture or dislocation seen. CXR: FINDINGS: Portable technique limits examination quality. Mild interstitial pulmonary edema. The heart is upper limit normal in size. No displaced fractures.Mild arthritic involve both shoulders. IMPRESSION: Mild CHF. Venous doppler: FINDINGS: Normal compressibility, flow augmentation, phasic flow and spontaneous flow is identified in both the left and right lower extremity deep venous systems. IMPRESSION: No sonographic evidence of left or right lower extremity deep venous thrombosis. Carotid doppler: FINDINGS: Normal high resistance waveforms are noted in both external carotid arteries. The common carotid arteries and internal carotid arteries show normal low resistance waveforms. Intimal thickening with mild mixed plaquing in both proximal internal carotid arteries. Peak systolic and end diastolic velocity values and the ICA/CCA ratios are in the non-hemodynamically significant range. Antegrade flow seen in both vertebral arteries. IMPRESSION: Intimal thickening with mild mixed plaquing in both proximal internal carotid arteries. No evidence of a hemodynamically significant stenosis. Medical Problem List: Near syncope with mechanical fall related to dehydration Acute on chronic diastolic CHF Chronic renal disease stage III Hypertension GERD Anemia of chronic disease Osteoarthritis with noted degenerative changes to the right shoulder Brief History of Present Illness: 70-year-old female with history of hypertension, CHF presents emergency department for presyncope. She reports that she was attending a . It was very hot outside. She fell. She reports that it was likely from dehydration and heat exhaustion. Patient denied any palpitations, headaches, chest pain or shortness of breath. Patient with underlying history of CHF. She initially had gone to ER at another facility but did not want to wait. She came to this ER for further evaluation. Chest x-ray showed possible pulmonary edema. Patient with some extremity edema. CT head neck and x-ray showed no evidence of fracture. Patient admitted for observation. Hospital Course: Patient presented with near syncope and mechanical fall. This was likely from dehydration. Patient had been outside attending a . The patient was evaluated in the emergency room. There was some suspicion of acute on chronic diastolic CHF. The patient was admitted overnight. Initial CT head and neck unremarkable. X-rays of the shoulder shows degenerative changes. No fracture noted. Patient responded well to IV diuresis. Patient without significant complaints. Physical therapy evaluated the patient. Patient back to baseline. Cardiac enzymes unremarkable. At discharge patient will continue with the 1500 cc/day fluid restriction and low-salt diet. At discharge she will continue with Lasix 40 mg daily. Recommend to monitor her weight daily. If her weight increases by more than 5 pounds adjustment in her Lasix may be required. This can be done with the help of her PCP or cardiology. Recommend follow-up with cardiology as outpatient to further address. Precautions provided. Education on dehydration provided. Patient with chronic renal disease stage III. This appears stable. Recommend no adjustment in her medications in the future. Recommend with 1500 cc/day fluid restriction as above. Patient with hypertension. At discharge patient will continue with her medications including aspirin 81 mg daily, clonidine 0.2 mg 1 pill twice daily, Diovan HCT 80 mg / 12.5 mg daily. Recommend to maintain blood pressure less than 130/80. Further adjustment can be done by her PCP. May hold medication if blood pressure systolic less than 110. Low up with PCP to further monitor and adjust. Patient with GERD. At discharge patient will continue with her medication of Nexium 40 mg daily. Patient with chronic pain and osteoarthritis of the shoulder with degenerative changes. Patient may continue with her tramadol as needed for pain. Patient may need to see orthopedics as an outpatient to further address. Fall precautions in place. Patient with anemia of chronic disease. At discharge patient will continue with multivitamin daily. Vital Signs/Physical Exam: Temp Pulse Resp BP Pulse Ox 97.1 F 71 20 137/63 96 08/29/20 08:00 08/29/20 08:00 08/29/20 08:00 08/29/20 08:00 08/29/20 08:00 General: Alert, In no apparent distress, Oriented x3, Cooperative HEENT: Atraumatic Neck: Supple Respiratory: Clear to auscultation bilaterally, Normal air movement Cardiovascular: Normal pulses, Regular rate/rhythm Gastrointestinal: Normal bowel sounds, Soft and benign, Non-distended, No ten derness, No masses, No rebound, No guarding Musculoskeletal: No erythema, No tenderness, No warmth Integumentary: No tenderness/swelling Neurological: Normal speech, Normal strength at 5/5 x4 extr, Normal tone, Normal affect Laboratory Data at Discharge: WBC 7.10 K/uL (4.3-10.9) 08/29/20 04:31 Hgb 10.4 g/dL (12.0-15.0) L 08/29/20 04:31 Hct 30.8 % (36.0-45.0) L 08/29/20 04:31 Plt Count 197 K/uL (152-406) 08/29/20 04:31 PT 11.9 SECONDS (9.5-12.5) 08/28/20 17:00 INR 1.03 08/28/20 17:00 Sodium 142 mmol/L (136-145) 08/29/20 04:31 Potassium 3.7 mmol/L (3.5-5.1) 08/29/20 04:31 BUN 23 mg/dL (7-18) H 08/29/20 04:31 Creatinine 1.56 mg/dL (0.55-1.3) H 08/29/20 04:31 Glucose 78 mg/dL (74-106) 08/29/20 04:31 Magnesium 2.1 mg/dL (1.8-2.4) 08/29/20 04:31 Total Bilirubin 0.4 mg/dL (0.2-1.0) 08/29/20 04:31 AST 24 U/L (15-37) 08/29/20 04:31 ALT 17 U/L (12-78) 08/29/20 04:31 Alkaline Phosphatase 71 U/L (45-117) 08/29/20 04:31 Troponin I < 0.02 ng/mL (0.0-0.045) 08/29/20 04:31 Triglycerides 52 mg/dL (<150) 08/29/20 04:31 Cholesterol 175 mg/dL (<200) 08/29/20 04:31 HDL Cholesterol 64 mg/dL (40-60) H 08/29/20 04:31 Cholesterol/HDL Ratio 2.73 08/29/20 04:31 Home Medications: Clonidine HCl [Catapres*] 0.2 mg PO BID 05/28/11 Calcium Carbonate 600 mg PO DAILY 06/20/13 Furosemide [Lasix*] 40 mg PO DAILY 06/20/13 Tramadol HCl [Ultram] 50 mg PO BID 06/20/13 Valsartan/Hydrochlorothiazide [Diovan Hct 80-12.5 mg Tablet] 1 each PO DAILY #30 tablet 06/21/13 Albuterol Inhaler [Ventolin Inhaler*] 2 puff IH Q6H PRN 08/29/20 Omeprazole 1 tab PO DAILY 08/29/20 Spironolactone [Aldactone*] 1 tab PO DAILY 08/29/20 Physician Discharge Instructions: Patient presented with near syncope and mechanical fall. This was likely from dehydration. Patient had been outside attending a . The patient was evaluated in the emergency room. There was some suspicion of acute on chronic diastolic CHF. The patient was admitted overnight. Initial CT head and neck unremarkable. X-rays of the shoulder shows degenerative changes. No fracture noted. Patient responded well to IV diuresis. Patient without significant complaints. Physical therapy evaluated the patient. Patient back to baseline. Cardiac enzymes unremarkable. At discharge patient will continue with the 1500 cc/day fluid restriction and low-salt diet. At discharge she will continue with Lasix 40 mg daily. Recommend to monitor her weight daily. If her weight increases by more than 5 pounds adjustment in her Lasix may be required. This can be done with the help of her PCP or cardiology. Recommend follow-up with cardiology as outpatient to further address. Precautions provided. Education on dehydration provided. Patient with chronic renal disease stage III. This appears stable. Recommend no adjustment in her medications in the future. Recommend with 1500 cc/day fluid restriction as above. Patient with hypertension. At discharge patient will continue with her medications including aspirin 81 mg daily, clonidine 0.2 mg 1 pill twice daily, Diovan HCT 80 mg / 12.5 mg daily. Recommend to maintain blood pressure less than 130/80. Further adjustment can be done by her PCP. May hold medication if blood pressure systolic less than 110. Low up with PCP to further monitor and adjust. Patient with GERD. At discharge patient will continue with her medication of Nexium 40 mg daily. Patient with chronic pain and osteoarthritis of the shoulder with degenerative changes. Patient may continue with her tramadol as needed for pain. Patient may need to see orthopedics as an outpatient to further address. Fall precautions in place. Patient with anemia of chronic disease. At discharge patient will continue with multivitamin daily. Diet: AHA Activity: Fall precautions Followup: Varsha Ocampo, DO [Primary Care Provider] - Time spent managing pt's care (in minutes): 55
--- NOTE | 2020-08-29 10:17 | RAD REPORT ---
EXAM DESCRIPTION: US - CP - 08/29/2020 9:14 am CLINICAL HISTORY: syncope Headache, drowsiness COMPARISON: Head C Spine Mpr Wo Con dated 08/28/2020 TECHNIQUE: Real-time sonographic evaluation of both carotid systems was performed. Doppler interroga tion was performed with waveform tracing bilaterally. FINDINGS: Normal high resistance waveforms are noted in both external carotid arteries. The common c arotid arteries and internal carotid arteries show normal low resistance waveforms. Intimal thickening with mild mixed plaquing in both proximal internal carotid arteries. Peak systolic and end diastolic velocity values and the ICA/CCA ratios are in the non-hemodynamically significant range. Antegrade flow seen in both vertebral arteries. IMPRESSION: Intimal thickening with mild mixed plaquing in both proximal internal carotid arteries. No evidence of a hemodynamically significant stenosis.
[2020-08-29 11:32] VITALS: O2SAT 99
[2020-08-29 12:01] VITALS: BP 113/58; TEMP 97.2
--- NOTE | 2020-08-29 13:54 | ECHO ---
HEIGHT: 5 ft 6 in WEIGHT: 246 lb 4.8 oz DATE OF STUDY: 08/29/[address]: Scot Cespedes NP 2-DIMENSIONAL: YES M.MODE: YES DOPPLER: YES COLOR FLOW: YES TDS: NO PORTABLE: NO DEFINITY: NO BUBBLE STUDY: NO DIAGNOSIS: CONGESTIVE HEART FAILURE, SYNCOPE CARDIAC HISTORY: CATHERIZATION: NO SURGERY: NO PROSTHETIC VALVE: NO PACEMAKER: NO MEASUREMENTS (cm) DIASTOLIC (NORMALS) SYSTOLIC (NORMALS) IVSd 0.9 (0.6-1.2) LA Diam 4.0 (1.9-4.0) LVEF 55-60% LVIDd 3.6 (3.5-5.7) LVIDs 2.3 (2.0-3.5) %FS 36% LVPWd 1.0 (0.6-1.2) Ao Diam 2.9 (2.0-3.7) 2 DIMENSIONAL ASSESSMENT: RIGHT ATRIUM: NORMAL LEFT ATRIUM: NORMAL RIGHT VENTRICLE: NORMAL LEFT VENTRICLE: NORMAL TRICUSPID VALVE: MITRAL VALVE: NORMAL PULMONIC VALVE: NORMAL AORTIC VALVE: NORMAL PERICARDIAL EFFUSION: NONE AORTIC ROOT: NORMAL LEFT VENTRICULAR WALL MOTION: NORMAL DOPPLER/COLOR FLOW: MILD TRICUSPID REGURGITATION. COMMENTS: NORMAL LEFT VENTRICULAR EJECTION FRACTION 55-60%. NORMAL WALL MOTION. MILD TRICUSPID REGURGITATION. TECHNOLOGIST: Keila RAMSEY
--- NOTE | 2020-08-29 14:04 | CON ---
Date of Consultation: 08/29/2020 Reason For Consultation: Admitted to Dr. Adame on 08/28/2020 for syncope and congestive heart failu re. I saw the patient on 08/29/2020. History Of Present Illness: Ms. Chisholm is a 70-year-old black female with history of hypertension, chronic pain, breast cancer, and arthritis. She came in with a syncopal episode after she was walkin g from the home. She does not remember any symptoms of chest pain, nausea, vomiting, diaphor esis, PND, orthopnea, pedal edema, or palpitation before that happened. She was not pre or postictal . Denied any fever or chills. Past Medical History: As stated above. Allergies: NONE. Review of Systems: Negative. Social History: Negative. Family History: Negative. Medications: At home include clonidine, furosemide, tramadol, vitamin D, inhalers, and nebulizers. Physical Examination: Vital Signs: Stable. She was afebrile. HEENT: Negative. Neck: Supple with no bruit. Chest: Clear to auscultation and percussion. Cardiac: Revealed a regular rhythm and rate. No murmurs, gallops, or rubs. Abdomen: Benign. Extremities: Revealed no clubbing, cyanosis, or edema. Diagnostic Data: She had a mild congestive heart failure by x-ray. Extremity venous study showed no evidence of thrombosis. Her creatinine was 1.82. Rest of the blood work was fairly unremarkable. Impression And Plan: Syncope secondary to orthostatic hypotension, most likely secondary to the clon idine Lasix combination. The patient was walking outside and I think dehydrate d. I agree with echocardiogram and carotid Doppler, but if they do not show anything, I would feel c omfortable with her going home, maybe hold her Lasix for few days. Her blood pressure is very well c ontrolled. NB/MODL Voice ID: [id number] Report ID: [id number]
== END 2020-08-29 14:26 | disposition home or self-care (01) ==
LOC: ER 16:08 → ERHOLD 18:27 → 4TH 20:56
PROVIDERS: ADMIT Family Medicine; ATTEND Family Medicine
DX: R55 Syncope and collapse (principal); E86.0 Dehydration; I13.0 Hypertensive heart and chronic kidney disease with heart failure and stage 1 through stage 4 chronic kidney disease, or unspecified chronic kidney disease; I50.33 Acute on chronic diastolic (congestive) heart failure; N18.30 Chronic kidney disease, stage 3 unspecified; D63.1 Anemia in chronic kidney disease; Z20.822 Contact with and (suspected) exposure to COVID-19; K21.9 Gastro-esophageal reflux disease without esophagitis; M19.011 Primary osteoarthritis, right shoulder; Z85.3 Personal history of malignant neoplasm of breast; G89.29 Other chronic pain; Z91.81 History of falling; G47.30 Sleep apnea, unspecified; J45.909 Unspecified asthma, uncomplicated
CPT/HCPCS: 36415; 70450; 71045; 72125; 80048; 80053; 80061; 80076; 83735; 83880; 84439; 84443; 84484; 85025; 85610; 93005; 93306; 93880; 93970; 96374; 99285; G0378; J1650; J1940; U0003